=== PATIENT | female | born 1930 | race Caucasian/White ===

== ENCOUNTER 2017-03-22 02:56 | Inpatient (IN) ==
[2017-03-22] MEDS ORDERED: Acetaminophen 325 MG TABLET PO PRN (05:15)
[2017-03-22] MEDS ORDERED: Naloxone 0.4 MG/ML INJ IVP PRN (05:15)
[2017-03-22] MEDS ORDERED: Ondansetron 4 MG/2 ML VIAL IVP PRN (05:15)
[2017-03-22] MEDS ORDERED: 0.9 % Sodium Chloride 1,000 ML IVC SCH (06:15)
--- NOTE | 2017-03-22 06:16 | Internal Med History&Physical ---
Date of Encounter: 03/22/17 Time of Encounter: 06:15 Assessment and Plan (1) Hyperkalemia Current visit: Yes Status: Acute likely related to acute renal failure in the setting of ARB. Will give a dose of Kayexalate for now; continue to monitor BMP, Telemetry. Hold ARB for now. (2) Cellulitis Current visit: Yes Status: Acute B/L leg cellulitis, infection likely secondary to dry and flaky skin. Received a dose of Clindamycin in ER, given her age, will Start IV Cefazolin and monitor clinically. Lower extremity elevation; low suspicion for DVT; pain control with PRN Tylenol and Oxycodone; Qualifiers: Site of cellulitis: extremity Site of cellulitis of extremity: lower extremity Laterality: unspecified laterality Qualified Code(s): L03.119 - Cellulitis of unspecified part of limb (3) Acute renal failure Current visit: Yes Status: Acute likely acute, no known h/o- CKD per family, no previous labs available. Probably prerenal azotemia due to use of diuretics; patient appears intravascularly volume depleted; will start IV hydration and monitor serum creatinine closely; hold Losartan; dose medications per current creatinine clearance; Qualifiers: Acute renal failure type: unspecified Qualified Code(s): N17.9 - Acute kidney failure, unspecified (4) Elevated troponin Current visit: Yes Status: Acute could be ACS or related to dehydration and demand ischemia; patient is appropriately anticoagulated with INR 2.9. Continue Telemetry monitoring and cycle Troponins; will obtain 2D Echocardiogram and consult Cardiology for further recommendations; Code status d/w family; currently remains Full Code although she does not desire permanent vegetative state on life support; patient is also Confucianist and does not desire blood products transfusion; (5) CHF (congestive heart failure) Current visit: Yes Status: Acute possible acute on chronic CHF given her elevated BNP, leg swelling and dyspnea and hypoxia; received a dose of Bumex in the ER, however she appears volume depleted with hypotension, and will give gentle IV hydration at this time, pending Cardiology evaluation; monitor urine output; f/up Echocardiogram; hold beta-denis and ARB for now; Qualifiers: Congestive heart failure type: unspecified congestive heart failure type Congestive heart failure chronicity: acute on chronic Qualified Code(s): I50.9 - Heart failure, unspecified (6) Essential hypertension Current visit: Yes Status: Chronic hold antihypertensives for now; monitor BP closely; (7) CAD (coronary artery disease) Current visit: Yes Status: Chronic Qualifiers: Coronary Disease-Associated Artery/Lesion type: [place] artery [place] vs. transplanted heart: [place] heart Associated angina: without angina Qualified Code(s): I25.10 - Atherosclerotic heart disease of [place] coronary artery without angina pectoris (8) Hypothyroidism Current visit: Yes Status: Chronic TSH noted to be low, along with free T3; continue Levothyroxine; Qualifiers: Hypothyroidism type: unspecified Qualified Code(s): E03.9 - Hypothyroidism , unspecified (9) Atrial fibrillation Current visit: Yes Status: Chronic s/p PPM placement. Hold beta-denis for now, slight bradycardia. Hold Coumadin , INR 2.9; continue to monitor; Telemetry. Qualifiers: Atrial fibrillation type: chronic Qualified Code(s): I48.2 - Chronic atrial fibrillation Internal Medicine - H&P: HPI Chief complaint: Lethargy, malaise, weakness Admitted From: Emergency Dept Plans for Post Hospital Care: Home History of present illness: Ms. Medellin is a 86 year old female with h/o- CAD, PPM/ICD, CHF is brought in by family for worsening malaise, lethargy and generalized weakness. Patient is currently week and history is also obtained with the help of her son and daughter at bedside. Patient has been having intermittent swelling in both her legs and has been using Bumex as needed for the last few days. This has been associated with poor oral intake, generalized weakness and malaise, excessive sleep and lethargy. No nausea, vomiting, diarrhea but family does report subjective chills. No chest or abdominal pain. Reported orthopnea and mild shortness of breath. Past Med Surg Social Fam HX - Past Medical History Medical history: atrial fibrillation, CHF, DVT, hypertension, myocardial infarction, thyroid disease, other Psychiatric history: depression - Past Surgical History Surgical History: orthopedic, other (ankle repair surgery), pacemaker/AICD, AICD , pacemaker - Social History Smoking Status: Former smoker Smokeless Tobacco Status: No Alcohol use: none Drug use: none Occupational status: retired Current living situation: Home - Independent Activity Level: Uses cane/walker Recent Out of Country Travel Within the Last 8 Weeks: No Exposure or Possible Exposure to Illness During Travel: No - Family History Father Living Status: Age at : 72 Cause of : CHF complications. Hx Family Cardiac Disorders: Yes (CHF) Internal Medicine - H&P: Meds Bumetanide 11/27/16 [History] Digoxin 11/27/16 [History] Levothyroxine 11/27/16 [History] Losartan 11/27/16 [History] Metoprolol 11/27/16 [History] Aspirin Enteric Coated [Aspirin EC] 325 mg PO DAILY 03/22/17 [History] Allergies codeine Allergy (Verified 03/22/17 07:01) Hallucinating acetaminophen [From Tylenol] Adverse Reaction (Verified 03/22/17 07:01) See Comments unknown metoclopramide [From Reglan] Adverse Reaction (Verified 03/22/17 07:01) See Comments unknown midazolam [From Versed] Adverse Reaction (Verified 03/22/17 07:01) See Comments unknown nalbuphine [From Nubain] Adverse Reaction (Verified 03/22/17 07:01) See Comments unknown promethazine [From Phenergan] Adverse Reaction (Verified 03/22/17 07:01) See Comments unknown All Systems PM: A 10-system review of systems was performed and is negative for pertinent findings except as documented above in the HPI. - Constitutional Constitutional: anorexia, chills, fatigue, lethargy, malaise, weakness - EENT Eyes: no change in vision, no discharge, no pain, no photophobia Ears: no ear discharge, no ear pain, no tinnitus Nose, mouth and throat: no dysphagia, no nasal discharge, no neck pain, no sore throat - Cardiovascular Cardiovascular ROS IM: dyspnea - Respiratory Respiratory: no cough, no dyspnea, no wheezing, no excessive phlegm production - Gastrointestinal Gastrointestinal: no abdominal pain, no diarrhea, no hematemesis, no hematochezia, no melena, no nausea, no vomiting - Genitourinary Genitourinary: no change in urinary stream, no dysuria, no flank pain, no hematuria - Musculoskeletal Musculoskeletal ROS IM: no numbness, no tingling - Integumentary Integumentary IM: no rash, no unusual bruising - Neurological Neurological ROS: behavioral changes, no confusion, no convulsions, no focal weakness, no numbness, no tingling, no tremor(s) - Hematologic/Lymphatic Hematologic/Lymphatic: no easy bruising - Constitutional Vitals: Temp Pulse Resp BP Pulse Ox 94.1 F L 60 12 118/55 97 03/22/17 05:50 03/22/17 05:50 03/22/17 04:43 03/22/17 04:43 03/22/17 05:50 General appearance: Present: cachectic (very thin and frail), A&O X 2, mild distress - ENT ENT exam: Present: mucous membranes dry (appears dehydrated ) - Respiratory Respiratory exam: Present: CTAB. Absent: accessory muscle use, rales, rhonchi, wheezes - Cardiovascular Cardiovascular exam: Present: RRR, +S1, +S2. Absent: diastolic murmur, gallop, rubs, systolic murmur - GI/Abdominal GI/Abdominal exam: Present: normal bowel sounds, soft, no peritoneal signs. Absent: distended, tenderness - Extremities Exam Extremities exam: Present: pedal edema, warm, radial pulses palpable and symetrical. Absent: calf tenderness, cyanotic - Neurological Exam Neurological exam: Present: CN II-XII intact, no focal deficits. Absent: pronater drift, facial droop, speech deficit - Skin Skin exam: Present: dry, erythema (B/L legs with diffuse erythema, warmth and edema; very dry and flaky skin), intact Internal Med - H&P Results - Labs CBC & Chem 7: 03/22/17 05:55 - EKG Data -: EKG Interpreted by Myself EKG shows normal: sinus rhythm, QRS complexes (paced rhythm) Rate: bradycardia
[2017-03-22 06:25] LABS: Calcium 8.6 mg/dL (8.6-10.8); Potassium 5.7 mEq/L (3.5-4.5)
[2017-03-22 06:48] LABS: Triiodothyronine (T3) Free 1.56 pg/mL (1.71-3.71)
[2017-03-22 06:50] LABS: Digoxin 2.8 ng/mL (0.8-2.0)
[2017-03-22] MEDS ORDERED: ceFAZolin 1,000 MG in D5% in Water (Mini-Bag+) 100 ML IVPB SCH (08:00)
[2017-03-22] MEDS ORDERED: Furosemide 40 MG TABLET PO SCH (08:15)
[2017-03-22] MEDS ORDERED: Furosemide 20 MG/2 ML VIAL IVP SCH (09:00)
[2017-03-22] MEDS: Aspirin Enteric Coated 325 MG Tablet PO SCH (10:45)
[2017-03-22 12:52] LABS: Calcium 8.2 mg/dL (8.6-10.8); Potassium 5.7 mEq/L (3.5-4.5)
--- NOTE | 2017-03-22 17:04 | ECHO - Doppler Report ---
Echocardiogram Name: Camryn Medellin Date of Study: 03/22/2017 Date: 1930 Ht: 61.0 in Medical Record#: [id number] Age: 86 Wt: 97.0 lb Gender: Female BSA: 1.39 Order #: [id number] Location: [facility] Room #: 2N11 Reading Physician: Markus Ryan MD, [facility] Fund Raiser: Chano Herbert Ordering Physician: Emmy Vickers MD Primary Physician: Indications: Elevated Troponin, Hypoxia Impressions: Technically sub-optimal due to poor echocardiographic windows. Grossly normal LV systolic function, estimated LVEF 60%. Several myocardial segments were not well visualized due to poor echo windows. Severely dilated right ventricle. Mild-moderate RV hypokinesis. There is flattening of the IV septum consistent with RV pressure/volume overload. A device lead was visualized in the right atrium and right ventricle. Severely dilated right atrium. Trileaflet aortic valve with moderately calcified leaflets with reduced systolic excursion. Aortic valve function was not well assessed on this study. Visually, I suspect moderate aortic stenosis. Mild aortic regurgitation. There is restricted motion of the tricuspid valve leaflets. The tricuspid valve leaflets fail to coapt. Severe (wide-open) tricuspid regurgitation. Cannot assess RVSP on this study. Findings: Study Quality * Technically sub-optimal due to poor echocardiographic windows. ECG Findings * Paced rhythm. Left Ventricle * Grossly normal LV systolic function, estimated LVEF 60%. Several myocardial segments were not well visualized due to poor echo windows. * Normal LV chamber size and wall thickness. * Indeterminate diastolic function. Right Ventricle * Severely dilated right ventricle. Mild-moderate RV hypokinesis. * There is flattening of the IV septum consistent with RV pressure/volume overload. Device lead * A device lead was visualized in the right atrium and right ventricle. Left Atrium * Normal left atrial size. Right Atrium * Severely dilated right atrium. Aorta * Normally sized aortic root. Pericardium * There is no pericardial effusion present. IVC * The IVC is not well evaluated. Pleural Effusion * A pleural effusion is noted. Aortic Valve * Trileaflet aortic valve with moderately calcified leaflets with reduced systolic excursion. * Aortic valve function was not well assessed on this study. Visually, I suspect moderate aortic stenosis. * Mild aortic regurgitation. Mitral Valve * Mildly thickened mitral valve leaflets. * No mitral stenosis. * Trace mitral regurgitation. Tricuspid Valve * There is restricted motion of the tricuspid valve leaflets. The tricuspid valve leaflets fail to coapt. * No tricuspid stenosis. * Severe (wide-open) tricuspid regurgitation. * Cannot assess RVSP on this study. Pulmonic Valve * Pulmonic valve not well visualized. * No pulmonic stenosis. * Trace pulmonic regurgitation. History History of CAD/PTCA Congestive Heart Failure Pacer/ICD Implant Measurements: BP: 88/ 39 2D Normal Values RVIDd: 5.20 cm IVSd: 1.00 cm 0.6 - 1.0 cm LVIDd: 3.90 cm 3.7 - 5.6 cm LVPWd: .80 cm 0.6 - 1.1 cm LVIDs: 2.90 cm 1.5 - 3.6 cm AO: 2.60 cm < 4.0 cm %FS: 25.60 cm >25 % LA volume: 32 Updated by Markus Ryan MD, FACC on 03/22/2017 4:58:13 PM electronically signed on 03/22/2017 5:00:01 PM with status of Final
--- NOTE | 2017-03-22 17:07 | Arterial Study Report ---
LE Arterial Physiologic Study Patient Name:Camryn Medellin Order Number:[id number] Procedure Date:03/22/2017 Date:1930ge:86 yrs Gender:Female Lt BP:83 / mmHg Rt.BP:84 / mmHgHeart Rate: Location:[facility] Room #: 2N11 Manager Outreach:Chano Herbert Referring MD:Moira Guido MD Reading MD:Dilip Phoenix MD Primary Indications:Diknished pedal pulses Risk Factors Yes/No Smoker Previous Yes Impressions: The right JOSE LUIS and waveforms are consistent with mild disease. Right JOSE LUIS 0.8. The left JOSE LUIS and waveforms are consistent with mild disease. Left JOSE LUIS 1.06. Recommendations: Risk factor reduction. Follow-up exam in 1 year. After imaging the patient returned to their room. Findings LE Arterial Physiologic Exam: PVR: Right: The PVR waveforms are mildly diminished in the right ankle. Left: The PVR waveforms are mildly diminished in the left ankle. Prior Study: No prior study available for comparison. Segmental Pressures Side Location Pressure Index Result Right Posterior Tibial 67 0.80 Right Dorsalis Pedis 66 0.79 Left Posterior Tibial 254 3.02 noncompressible Left Dorsalis Pedis 89 1.06 Ankle Brachial Index Right Systolic Diastolic JOSE LUIS Brachial 84 0.80 Dorsalis Pedis 66 0.79 Posterior Tibial 67 0.80 Left Systolic Diastolic JOSE LUIS Brachial 83 3.02 Dorsalis Pedis 89 1.06 Posterior Tibial 254 3.02 Updated by Dilip Phoenix MD on 03/22/2017 5:03:22 PM with Status of Final electronically signed on 03/22/2017 5:03:55 PM with status of Final
--- NOTE | 2017-03-22 18:01 | Cardiology Consult Note ---
Date of Encounter: 03/22/17 Time of Encounter: 17:58 Assessment and Plan (1) Cardiac enzymes elevated Current Visit: No Status: Acute Mildly elevated troponin in setting of dehydration/JORDAN. Advanced age with baseline dementia. I had a long discussion with patient's family earlier today. Given her current condition, dementia, and somewhat poor appearing quality of life, I would not recommend an aggressive cardiac strategy. Recommend supportive care. Hopefully, she will respond favorably. However, family seems open to the idea of hospice if her condition worsens. No further inpatient cardiac testing recommended at this time. (2) VHD (valvular heart disease) Current Visit: Yes Status: Acute Severe TR with evidence of RV failure on TTE. ? related to multiple device leads. Also, moderate visually. Recommend conservative strategy of observation and medical therapy as appropriate. (3) CAD (coronary artery disease) Current Visit: Yes Status: Chronic [place] CAD, prior PCI. Recommend aspirin therapy. No BB given relative hypotension. See comments under elevated cardiac enzymes. Please call with questions or concerns. Qualifiers: Coronary Disease-Associated Artery/Lesion type: [place] artery [place] vs. transplanted heart: [place] heart Associated angina: without angina Qualified Code(s): I25.10 - Atherosclerotic heart disease of [place] coronary artery without angina pectoris Discussion w patient/family: The assessment and plan as outlined above was discussed with the patient and/or family members who expressed understanding and agreement. All questions were answered. Thank you for involving us in the care of your patient. Please call with any questions. History of Present Illness Consult date: 03/22/17 Requesting physician: Elsie Vickers Consult reason: Elevated troponin Chief complaint: Confusion, Decreased PO intake History of present illness: Ms. Medellin is a 86 year old female who currently lives in apartment, but is visited by family. Family reports increasing weakness and poor po intake for quite some time. Patient does not eat or drink unless someone is there to sit with her. Admitted for increasing weakness and confusion. Noted to be very thin, temporal wasting. Elevated creatinine. Reports history of CAD, prior PCI, prior PM upgraded to ICD about 10 years ago. Prior curer acid drum Dr. Burch. Past Med Surg Social Fam HX - Past Medical History Medical history: atrial fibrillation, CHF, DVT, hypertension, myocardial infarction, thyroid disease, other Psychiatric history: depression - Past Surgical History Surgical History: orthopedic, other (ankle repair surgery), pacemaker/AICD, AICD , pacemaker - Social History Smoking Status: Former smoker Smokeless Tobacco Status: No Alcohol use: none Drug use: none - Family History Father Living Status: Age at : 72 Cause of : CHF complications. Hx Family Cardiac Disorders: Yes (CHF) Medications and Allergies Aspirin Enteric Coated [Aspirin EC] 325 mg PO DAILY 03/22/17 [History] Bumetanide [Bumetanide] 0.5 mg PO DAILY 03/22/17 [History] Digoxin [Lanoxin] 0.125 mg PO DAILY 03/22/17 [History] Levothyroxine Sodium [Levoxyl] 112 mcg PO DAILY 03/22/17 [History] Losartan Potassium [Cozaar] 100 mg PO DAILY 03/22/17 [History] Metoprolol [Lopressor] 50 mg PO DAILY 03/22/17 [History] Allergies codeine Allergy (Verified 03/22/17 07:01) Hallucinating acetaminophen [From Tylenol] Adverse Reaction (Verified 03/22/17 07:01) See Comments unknown metoclopramide [From Reglan] Adverse Reaction (Verified 03/22/17 07:01) See Comments unknown midazolam [From Versed] Adverse Reaction (Verified 03/22/17 07:01) See Comments unknown nalbuphine [From Nubain] Adverse Reaction (Verified 03/22/17 07:01) See Comments unknown promethazine [From Phenergan] Adverse Reaction (Verified 03/22/17 07:01) See Comments unknown ROS unobtainable: due to mental status All Systems Review: A 10-system review of systems was performed and is negative for pertinent findings except as documented above in the HPI. Physical Examination Vital Signs, Last 4 Hours Temp Pulse Resp BP Pulse Ox 03/22/17 16:05 97.3 F L 60 16 98/44 97 03/22/17 15:15 97.3 F L 61 16 84/38 97 General: Other (Frail, sleeping. ) HEENT: Other (Dry mucous membranes. ) Neck: No JVD, Normal carotid pulses Cardiac: Other (Distant, mild ash) Lungs: Other (Shallow, diminished) Neuro: Other (Weak, tired. ) Abdomen: Soft, Non-Tender Skin: No rashes noted on visualized skin Musculoskeletal: No Chest Wall Tenderness Extremities: Other (Edema bilterally) Results 03/22/17 12:15 Lab Results 03/22/17 03/22/17 03/22/17 05:55 05:55 09:23 Sodium 134 L Potassium 5.7 H 5.6 H Chloride 98 Carbon Dioxide 29 BUN 78 H Creatinine 1.87 H Glucose 81 Calcium 8.6 Troponin I 0.38 H* 03/22/17 03/22/17 12:15 12:15 Sodium 134 L Potassium 5.7 H Chloride 99 Carbon Dioxide 27 BUN 78 H Creatinine 1.89 H Glucose 69 L Calcium 8.2 L Troponin I 0.36 H* - Imaging and Cardiology Echo: report reviewed - EKG Interpretation EKG results cardiology: personally reviewed Consult Discharge Plan - Plan Referrals: Jasmeet Olivares CNP [Advanced Practice Nurse] - 03/29/17 2:00 pm Peter Kunz MD [Primary Care Provider] - Caity Demarco MD [Partnered Physician] - 04/12/17 2:30 pm
[2017-03-22] MEDS: ceFAZolin 1,000 MG in D5% in Water (Mini-Bag+) 100 ML IVPB SCH (21:21)
[2017-03-23 05:33] LABS: INR 2.9; Prothrombin Time 31.9 Seconds (9.4-12.1)
[2017-03-23 05:46] LABS: Basophils % 0.7 %; Eosinophils # 0.1 K/mcL (0.0-0.6); Eosinophils % 2.4 %; Hematocrit 39.5 % (35.3-44.9); Hemoglobin 12.7 g/dL (11.5-15.4); Immature Granulocytes % 0.2 % (0-4); Lymphocytes # 1.1 K/mcL (0.6-4.6); Mean Corpuscular HGB Conc 32.2 g/dL (31.6-35.5); Mean Corpuscular Hemoglobin 30.9 pg (28.0-33.3); Mean Corpuscular Volume 96.1 fL (83.0-100.0); Mean Platelet Volume 10.8 fL (9.4-12.4); Monocytes # 0.6 K/mcL (0.0-1.3); Monocytes % 13.3 %; Neutrophils # 2.3 K/mcL (1.6-8.9); Platelet Count 154 K/mcL (140-400); Red Blood Count 4.11 M/mcL (3.82-4.97); Red Cell Distribution Width 15.4 % (11.5-14.5); Segmented Neutrophils % 56.4 %
[2017-03-23 06:22] LABS: Calcium 8.4 mg/dL (8.6-10.8); Chol/HDL Ratio 3.6 (0-4.9); Magnesium 2.2 mg/dL (1.6-2.6); Phosphorous 6.2 mg/dL (2.3-4.7); Potassium 5.8 mEq/L (3.5-4.5)
[2017-03-23] MEDS: ceFAZolin 1,000 MG in D5% in Water (Mini-Bag+) 100 ML IVPB SCH ×2 (08:23→20:55)
[2017-03-23] MEDS: Aspirin Enteric Coated 325 MG Tablet PO SCH (12:37)
[2017-03-23] MEDS ORDERED: Saline Nasal Spray 44 ML BOTTLE NS PRN (19:55)
[2017-03-23] MEDS ORDERED: D5% in 0.45% NACL 1,000 ML IVC SCH (22:15)
[2017-03-24 05:09] LABS: Basophils % 0.9 %; Eosinophils # 0.1 K/mcL (0.0-0.6); Eosinophils % 2.1 %; Hematocrit 41.4 % (35.3-44.9); Hemoglobin 13.1 g/dL (11.5-15.4); Immature Granulocytes % 0.2 % (0-4); Lymphocytes # 1.2 K/mcL (0.6-4.6); Mean Corpuscular HGB Conc 31.6 g/dL (31.6-35.5); Mean Corpuscular Hemoglobin 30.3 pg (28.0-33.3); Mean Corpuscular Volume 95.8 fL (83.0-100.0); Mean Platelet Volume 10.5 fL (9.4-12.4); Monocytes # 0.6 K/mcL (0.0-1.3); Monocytes % 13.3 %; Neutrophils # 2.4 K/mcL (1.6-8.9); Platelet Count 167 K/mcL (140-400); Red Blood Count 4.32 M/mcL (3.82-4.97); Red Cell Distribution Width 15.2 % (11.5-14.5); Segmented Neutrophils % 55.5 %
[2017-03-24 05:17] LABS: INR 3.3; Prothrombin Time 36.4 Seconds (9.4-12.1)
[2017-03-24 05:35] LABS: Calcium 8.6 mg/dL (8.6-10.8); Magnesium 2.3 mg/dL (1.6-2.6); Potassium 5.7 mEq/L (3.5-4.5)
[2017-03-24] MEDS: Aspirin Enteric Coated 325 MG Tablet PO SCH (08:02)
[2017-03-24] MEDS: ceFAZolin 1,000 MG in D5% in Water (Mini-Bag+) 100 ML IVPB SCH (08:02)
[2017-03-24] MEDS ORDERED: Bisacodyl 10 MG RECTAL SUPPOSITORY RC ONE (09:00)
[2017-03-24] MEDS ORDERED: Furosemide 20 MG/2 ML VIAL IVP SCH (09:00)
--- NOTE | 2017-03-24 09:47 | Internal Med Progress Note ---
Date of Encounter: 03/23/17 Time of Encounter: 10:00 - Assessment and plan (1) Acute metabolic encephalopathy Current Visit: Yes Status: Acute Assessment and plan: secondary to infection, hyperkalemia, heart failure, hypoxemia, elevated digoxin level. CT head showed no acute intracranial process. There are areas of encephalomalacia in right frontal, left. The lobe and left cerebellum that are unchanged. slowly improving. treat underlying etiology. (2) Heart failure Current Visit: No Status: Acute Assessment and plan: acute on chronic right-sided heart failure and diastolic HF. Chest x-ray reviewed by me and shows pulmonary vascular congestion. Echocardiogram shows LVEF 60%,, severely dilated right ventricle, mild-moderate RV hyokinesis, there is flattening, of the IV septum consistent with RV pressure /volume overload, severe dilated right atrium, severe TR. Appreciate cardiology input. Stop IV fluids. will resume Lasix tomorrow. Fluid restriction. Strict I/O. Qualifiers: Heart failure type: diastolic Heart failure chronicity: acute on chronic Qualified Code(s): I50.33 - Acute on chronic diastolic (congestive) heart failure (3) VHD (valvular heart disease) Current Visit: Yes Status: Chronic Assessment and plan: severe TR. plan as above. (4) Elevated digoxin level Current Visit: Yes Status: Acute Assessment and plan: digoxin levek at 2.8 on admission. holding digoxin. (5) CKD (chronic kidney disease) stage 4, GFR 15-29 ml/min Current Visit: Yes Status: Acute Assessment and plan: acute on chronic CKD 4 with hyperkalemia. recieved kayexalate with no improvement. (6) Hyperkalemia Current Visit: Yes Status: Acute (7) Elevated troponin Current Visit: Yes Status: Acute Assessment and plan: secondary to demand ischemia. (8) Atrial fibrillation Current Visit: Yes Status: Chronic Assessment and plan: holding home dose metoprolol due to bradycardia/hypotension. Qualifiers: Atrial fibrillation type: chronic Qualified Code(s): I48.2 - Chronic atrial fibrillation (9) CAD (coronary artery disease) Current Visit: Yes Status: Chronic Assessment and plan: continue medical therapy with aspiring. Qualifiers: Coronary Disease-Associated Artery/Lesion type: [place] artery [place] vs. transplanted heart: [place] heart Associated angina: without angina Qualified Code(s): I25.10 - Atherosclerotic heart disease of [place] coronary artery without angina pectoris (10) Essential hypertension Current Visit: Yes Status: Chronic Assessment and plan: hypotensive on admission. holding home dose of losartan. (11) Hypothyroidism Current Visit: Yes Status: Chronic Qualifiers: Hypothyroidism type: unspecified Qualified Code(s): E03.9 - Hypothyroidism , unspecified - Subjective Interval history: patient is more alert, she is sitting in chair and eating her breakfast. - Constitutional Vitals: Temp Pulse Resp BP Pulse Ox 96.6 F L 60 16 97/40 95 03/24/17 07:39 03/24/17 08:00 03/24/17 07:39 03/24/17 07:39 03/24/17 07:39 General appearance: Present: cachectic (very thin and frail), cooperative, A&O X 2, pleasant, no acute distress Exam: she answers some questions. she is very hard of hearing. - Neck Neck exam general surgery: Present: supple, trachea midline. Absent: lymphadenopathy - Respiratory Respiratory exam: Present: decreased breath sounds, rhonchi (at right lung base) - Cardiovascular Cardiovascular exam: Present: distant heart sounds - GI/Abdominal GI/Abdominal exam: Present: normal bowel sounds, soft. Absent: distended, tenderness - Back Exam Back exam: Absent: CVA tenderness (L), CVA tenderness (R) - Neurological Exam Neurological exam: Present: alert. Absent: facial droop, speech deficit - Skin Skin exam: Present: rash (LE redness and swelling.) Additional comments: decubitus sacral ulcer stage II, present since admission. Internal Medicine: Result - Labs CBC & Chem 7: 03/24/17 04:19 03/24/17 04:19 Labs: Short CBC 03/24/17 Range/Units 04:19 WBC 4.4 (4.3-11.1) K/mcL Hgb 13.1 (11.5-15.4) g/dL Hct 41.4 (35.3-44.9) % Plt Count 167 (140-400) K/mcL Neutrophils # 2.4 (1.6-8.9) K/mcL BMP 03/24/17 04:19 Sodium 132 L Potassium 5.7 H Chloride 98 Carbon Dioxide 24 BUN 84 H Creatinine 2.31 H Glucose 85 Calcium 8.6 - ABG Interpretation ABG results: PT/INR, D-dimer PT 36.4 Seconds (9.4-12.1) H 03/24/17 04:19 Consult Discharge Plan - Plan Referrals: Jasmeet Olivares CNP [Advanced Practice Nurse] - 03/29/17 2:00 pm Peter Kunz MD [Primary Care Provider] - Caity Demarco MD [Partnered Physician] - 04/12/17 2:30 pm
[2017-03-24] MEDS ORDERED: Morphine Oral CONC 5 MG/0.25 ML ORAL.SYG PO PRN (10:40)
--- NOTE | 2017-03-24 10:43 | Internal Med Progress Note ---
Date of Encounter: 03/24/17 Time of Encounter: 10:00 - Assessment and plan (1) Goals of care, counseling/discussion Current Visit: Yes Status: Acute Assessment and plan: Palliative service consulted. patient is [id number]. They would like to discuss switching off the AICD only but not the pacemaker. (2) Acute metabolic encephalopathy Current Visit: Yes Status: Acute Assessment and plan: secondary to infection, hyperkalemia, heart failure, hypoxemia, elevated digoxin level. CT head showed no acute intracranial process. There are areas of encephalomalacia in right frontal, left. The lobe and left cerebellum that are unchanged. improved. treat underlying etiology. (3) Acute respiratory failure with hypoxia Current Visit: Yes Status: Acute Assessment and plan: secondary to acute heat failure. patient requiring 3L NC. plan as heart failure. (4) Heart failure Current Visit: No Status: Acute Assessment and plan: acute on chronic right-sided heart failure and diastolic HF. Chest x-ray reviewed by me and shows pulmonary vascular congestion. Echocardiogram shows LVEF 60%,, severely dilated right ventricle, mild-moderate RV hyokinesis, there is flattening, of the IV septum consistent with RV pressure /volume overload, severe dilated right atrium, severe TR. Appreciate cardiology input. resume Lasix. oxygen supplementation. Fluid restriction. Strict I/O. Qualifiers: Heart failure type: diastolic Heart failure chronicity: acute on chronic Qualified Code(s): I50.33 - Acute on chronic diastolic (congestive) heart failure (5) VHD (valvular heart disease) Current Visit: Yes Status: Chronic Assessment and plan: severe TR. plan as above. (6) Elevated digoxin level Current Visit: Yes Status: Acute Assessment and plan: digoxin levek at 2.8 on admission. holding digoxin. (7) CKD (chronic kidney disease) stage 4, GFR 15-29 ml/min Current Visit: Yes Status: Acute Assessment and plan: acute on chronic CKD 4 with hyperkalemia. recieved kayexalate with no improvement. (8) Hyperkalemia Current Visit: Yes Status: Acute Assessment and plan: rectal kayexalatex1. dulcolax RC x1. (9) Elevated troponin Current Visit: Yes Status: Acute Assessment and plan: secondary to demand ischemia. (10) Atrial fibrillation Current Visit: Yes Status: Chronic Assessment and plan: holding home dose metoprolol due to bradycardia/hypotension. Qualifiers: Atrial fibrillation type: chronic Qualified Code(s): I48.2 - Chronic atrial fibrillation (11) CAD (coronary artery disease) Current Visit: Yes Status: Chronic Assessment and plan: continue medical therapy with aspiring. Qualifiers: Coronary Disease-Associated Artery/Lesion type: [place] artery [place] vs. transplanted heart: [place] heart Associated angina: without angina Qualified Code(s): I25.10 - Atherosclerotic heart disease of [place] coronary artery without angina pectoris (12) Essential hypertension Current Visit: Yes Status: Chronic Assessment and plan: hypotensive on admission. holding home dose of losartan. (13) Hypothyroidism Current Visit: Yes Status: Chronic Assessment and plan: resume home med Qualifiers: Hypothyroidism type: unspecified Qualified Code(s): E03.9 - Hypothyroidism , unspecified - Subjective Interval history: patient is sleeping. daughter at bedside, would like patient to have sitter at nighttime. - Constitutional Vitals: Temp Pulse Resp BP Pulse Ox 96.6 F L 60 16 97/40 95 03/24/17 07:39 03/24/17 08:00 03/24/17 07:39 03/24/17 07:39 03/24/17 07:39 General appearance: Present: cachectic (very thin and frail), cooperative, A&O X 2, pleasant, no acute distress - Respiratory Respiratory exam: Present: rhonchi, wheezes - Cardiovascular Cardiovascular exam: Present: RRR - GI/Abdominal GI/Abdominal exam: Present: normal bowel sounds, soft. Absent: distended, tenderness - Extremities Exam Extremities exam: Present: pedal edema (1+ le edema) - Back Exam Back exam: Absent: CVA tenderness (L), CVA tenderness (R) - Neurological Exam Additional comments: sleeping but open eyes and answers yes and no questions. she moves her arms and legs briefly. - Skin Skin exam: Present: rash (LE ) Internal Medicine: Result - Labs CBC & Chem 7: 03/24/17 04:19 03/24/17 04:19 Labs: Short CBC 03/24/17 Range/Units 04:19 WBC 4.4 (4.3-11.1) K/mcL Hgb 13.1 (11.5-15.4) g/dL Hct 41.4 (35.3-44.9) % Plt Count 167 (140-400) K/mcL Neutrophils # 2.4 (1.6-8.9) K/mcL BMP 03/24/17 04:19 Sodium 132 L Potassium 5.7 H Chloride 98 Carbon Dioxide 24 BUN 84 H Creatinine 2.31 H Glucose 85 Calcium 8.6 - ABG Interpretation ABG results: PT/INR, D-dimer PT 36.4 Seconds (9.4-12.1) H 03/24/17 04:19 Consult Discharge Plan - Plan Referrals: Jasmeet Olivares CNP [Advanced Practice Nurse] - 03/29/17 2:00 pm Peter Kunz MD [Primary Care Provider] - Caity Demarco MD [Partnered Physician] - 04/12/17 2:30 pm
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
[2017-03-24] MEDS: Furosemide 20 MG/2 ML VIAL IVP SCH (16:29)
[2017-03-24] MEDS: cephALEXin 250 MG CAPSULE PO SCH (22:20)
[2017-03-25] MEDS: *HR* LORazepam Oral Conc 2 MG/ML SL PRN ×2 (02:14→06:22)
--- NOTE | 2017-03-25 07:34 | Discharge Summary ---
Date of Encounter: 03/25/17 Time of Encounter: 07:32 - Discharge Diagnosis (1) Goals of care, counseling/discussion Priority: Primary Status: Acute (2) Acute metabolic encephalopathy Priority: Primary Status: Acute (3) Acute respiratory failure with hypoxia Priority: Primary Status: Acute (4) Heart failure Priority: Primary Status: Acute Qualifiers: Heart failure type: diastolic Heart failure chronicity: acute on chronic Qualified Code(s): I50.33 - Acute on chronic diastolic (congestive) heart failure (5) VHD (valvular heart disease) Priority: Primary Status: Chronic (6) Elevated digoxin level Priority: Primary Status: Acute (7) CKD (chronic kidney disease) stage 4, GFR 15-29 ml/min Priority: Secondary Status: Chronic (8) Hyperkalemia Priority: Primary Status: Acute (9) Elevated troponin Priority: Primary Status: Acute (10) Atrial fibrillation Priority: Secondary Status: Chronic Qualifiers: Atrial fibrillation type: chronic Qualified Code(s): I48.2 - Chronic atrial fibrillation (11) CAD (coronary artery disease) Priority: Secondary Status: Chronic Qualifiers: Coronary Disease-Associated Artery/Lesion type: [place] artery [place] vs. transplanted heart: [place] heart Associated angina: without angina Qualified Code(s): I25.10 - Atherosclerotic heart disease of [place] coronary artery without angina pectoris (12) Essential hypertension Priority: Secondary Status: Chronic (13) Hypothyroidism Priority: Secondary Status: Chronic Qualifiers: Hypothyroidism type: unspecified Qualified Code(s): E03.9 - Hypothyroidism , unspecified - Discharge Medications Prescriptions: Haloperidol Oral Conc [Haldol] 1 mg PO Q6H PRN #10 mls PRN Reason: agitation LORazepam Oral Conc [Ativan Oral Conc] 0.5 mg SL Q4H PRN #15 mls PRN Reason: anxiety or agitation Morphine Oral CONC [Roxanol] 2.5 - 5 mg PO Q2H PRN #30 ml PRN Reason: pain or dyspnea Home Medications: Bumetanide 0.5 mg PO DAILY 03/22/17 [History] Levothyroxine Sodium [Levoxyl] 112 mcg PO DAILY 03/22/17 [History] Haloperidol Oral Conc [Haldol] 1 mg PO Q6H PRN #10 mls 03/24/17 [Rx] LORazepam Oral Conc [Ativan Oral Conc] 0.5 mg SL Q4H PRN #15 mls 03/24/17 [Rx] Morphine Oral CONC [Roxanol] 2.5 - 5 mg PO Q2H PRN #30 ml 03/24/17 [Rx] cephALEXin [Keflex] 250 mg PO BID 7 Days 03/25/17 [Rx] Allergies/Adverse Reactions: Allergies codeine Allergy (Verified 03/22/17 07:01) Hallucinating acetaminophen [From Tylenol] Adverse Reaction (Verified 03/22/17 07:01) See Comments unknown metoclopramide [From Reglan] Adverse Reaction (Verified 03/22/17 07:01) See Comments unknown midazolam [From Versed] Adverse Reaction (Verified 03/22/17 07:01) See Comments unknown nalbuphine [From Nubain] Adverse Reaction (Verified 03/22/17 07:01) See Comments unknown promethazine [From Phenergan] Adverse Reaction (Verified 03/22/17 07:01) See Comments unknown Procedures/tests Complete & Pending: Procedures Performed prior 72 hours Category Date Time Status JOSE LUIS [EV ankle brachial index] Routine Y 03/22/17 09:09 Completed Date of admission: 03/22/17 05:15 Primary care physician: Peter Kunz MD Consults: 03/22/17 05:19 Consult to Occupational Therapy [CONS] Routine Comment: Evaluate, develop and implement POC Reason for Consult: Deconditioning, weakness Consult to Physical Therapy [CONS] Routine Comment: Evaluate, develop and implement POC Reason for Consult: Deconditioning, weakness 03/22/17 06:12 Consult to Nutrition [CONS] Routine Comment: Consulting Provider: NUTRITION Reason for Dietary Consult: MST Score Consult to [employer] [CONS] Routine Reason for SW Consult: Family wanting to discuss POA 03/22/17 06:15 Consult to Cardiology [CONS] Routine Comment: Consulting Provider: Cardiology D Lo Reason for Consult: Elevated Troponin, lethargy, malaise Call Completed: Yes 03/23/17 16:12 Consult to Palliative Care [CONS] Routine Comment: Consulting Provider: Palliative Care Megan Reason for Consult: goals of care. Call Completed: Yes - Patient Status Disposition: Transfer Inpatient Rehab Fac Condition: Fair Functional capacity at discharge: bed bound (okay to sit in chair) Overall status at discharge: patient is not back to baseline - Discharge Instructions Follow Up With: Jasmeet Olivares, INDUSTRIAL ORDER CLERK [Advanced Practice Nurse] - (Pt is going to an ECF, no PCP appointment needed) Peter Kunz MD [Primary Care Provider] - Caity Demarco MD [Partnered Physician] - 04/12/17 2:30 pm - Diet and Activity Activity: other (okay to sit in chair) Diet: low fat, low cholesterol (fluid restriction 1.6 liters a day) Interval History: Her son is at bedside and states that patient was able to fall asleep at 3 AM after she received Ativan and morphine. Patient is sleeping comfortable. Hospital course: Ms. Medellin is a 86 year old female with past medical history of CAD, right-sided heart failure, severe TR, status post PPM/ICD, CKD 4, atrial fibrillation on Coumadin and hypertension who presented with a chief complaint of changes in mental status and generalized weakness. CT had shown no acute intracranial process. She was admitted with diagnosis of lower treatment is likely some acute on chronic right-sided heart failure. She received IV 7 is only in with his low improvement of her cellulitis. Chest x-ray reviewed by me and shows pulmonary vascular congestion. Echocardiogram shows LVEF 60%,, severely dilated right ventricle, mild-moderate RV hyokinesis, there is flattening, of the IV septum consistent with RV pressure /volume overload, severe dilated right atrium, severe TR. Given severity of her comorbidities, our palliative service was consulted. After family meeting, patient and family agreed on hospice at halfway. - Time Spent with Patient Total time spent providing and/or coordinating discharge services: - Constitutional Vitals: Temp Pulse Resp BP Pulse Ox 97.5 F L 60 16 102/42 90 03/24/17 19:44 03/24/17 21:15 03/24/17 19:44 03/24/17 15:31 03/24/17 19:44 General appearance: Present: cachectic (very thin and frail), cooperative, A&O X 2, pleasant, no acute distress
--- NOTE | 2017-03-25 07:37 | Physician Discharge Referral ---
ExtendedCare Referral Info Transfer To: ECF - hospice Provider in Charge: trent Provider in Charge after Transfer: [facility] Institutional Level of Care: Skilled - Diagnosis (1) Goals of care, counseling/discussion Status: Acute (2) Acute metabolic encephalopathy Status: Acute (3) Acute respiratory failure with hypoxia Status: Acute (4) Heart failure Status: Acute (5) VHD (valvular heart disease) Status: Chronic (6) Elevated digoxin level Status: Acute (7) CKD (chronic kidney disease) stage 4, GFR 15-29 ml/min Status: Chronic (8) Hyperkalemia Status: Acute (9) Elevated troponin Status: Acute (10) Atrial fibrillation Status: Chronic (11) CAD (coronary artery disease) Status: Chronic (12) Essential hypertension Status: Chronic (13) Hypothyroidism Status: Chronic - Transfer Medications Prescriptions: Haloperidol Oral Conc [Haldol] 1 mg PO Q6H PRN #10 mls PRN Reason: agitation LORazepam Oral Conc [Ativan Oral Conc] 0.5 mg SL Q4H PRN #15 mls PRN Reason: anxiety or agitation Morphine Oral CONC [Roxanol] 2.5 - 5 mg PO Q2H PRN #30 ml PRN Reason: pain or dyspnea Home Medications: Bumetanide 0.5 mg PO DAILY 03/22/17 [History] Levothyroxine Sodium [Levoxyl] 112 mcg PO DAILY 03/22/17 [History] Haloperidol Oral Conc [Haldol] 1 mg PO Q6H PRN #10 mls 03/24/17 [Rx] LORazepam Oral Conc [Ativan Oral Conc] 0.5 mg SL Q4H PRN #15 mls 03/24/17 [Rx] Morphine Oral CONC [Roxanol] 2.5 - 5 mg PO Q2H PRN #30 ml 03/24/17 [Rx] cephALEXin [Keflex] 250 mg PO BID 7 Days 03/25/17 [Rx] Allergies/Adverse Reactions: Allergies codeine Allergy (Verified 03/22/17 07:01) Hallucinating acetaminophen [From Tylenol] Adverse Reaction (Verified 03/22/17 07:01) See Comments unknown metoclopramide [From Reglan] Adverse Reaction (Verified 03/22/17 07:01) See Comments unknown midazolam [From Versed] Adverse Reaction (Verified 03/22/17 07:01) See Comments unknown nalbuphine [From Nubain] Adverse Reaction (Verified 03/22/17 07:01) See Comments unknown promethazine [From Phenergan] Adverse Reaction (Verified 03/22/17 07:01) See Comments unknown - Respiratory Orders Oxygen / L per min (4) Smoking Cessation: Smoking cessation has been advised. For more information, call the [place] Tobacco Quit Line at 3-320-JMHU-NOW. - Advance Directives Code Status: DNR-Comfort Care - Mobility Orders Chair, Bedrest - Rehabiliation Orders Rehab Potential: Poor - Diet Orders Cardiac (fluid restriction 1.6 liters per day) CERTIFICATION: I certify that the transfer of the above named patient to an Extended Care Facility is necessary for the continuing treatment of the diagnosis listed. The above information is true and accurate reflection of patient's current condition. Confidential - Redisclosure prohibited without a patient's written consent.
[2017-03-25 08:29] VITALS: BP 100/45
[2017-03-25] MEDS: Furosemide 20 MG/2 ML VIAL IVP SCH (08:35)
--- NOTE | 2017-03-25 10:13 | Palliative Progress Note ---
Date of Encounter: 03/25/17 Time of Encounter: 09:45 - Assessment and plan (1) Dyspnea Current Visit: Yes Status: Acute Assessment and plan: Tolerated Roxanol well, was utilized x1 last night. Continue and monitor Qualifiers: Dyspnea type: unspecified Qualified Code(s): R06.00 - Dyspnea, unspecified (2) Anxiety Current Visit: Yes Status: Acute Assessment and plan: Tolerated Lorazepam well last night. Son states first night she has slept well in about a week. Continue and monitor (3) Goals of care, counseling/discussion Current Visit: Yes Status: Acute Assessment and plan: Will transfer to [place] with [facility] hospice today. (4) Heart failure Current Visit: No Status: Acute Qualifiers: Heart failure type: diastolic Heart failure chronicity: acute on chronic Qualified Code(s): I50.33 - Acute on chronic diastolic (congestive) heart failure (5) Severe tricuspid regurgitation Current Visit: Yes Status: Acute - Time Spent With Patient Total time spent is greater than 50% in coordination of care (as documented) at patient's floor/unit and/or counseling patient: - Subjective Interval history: Patient sleeping quietly. Family at bedside. Stated she slept much better last night with Lorazepam. AICD was inactivated yesterday. Preparing for transfer to discharge. - Constitutional Vitals: Abnormal lab results RDW 15.2 % (11.5-14.5) H 03/24/17 04:19 PT 36.4 Seconds (9.4-12.1) H 03/24/17 04:19 Sodium 132 mEq/L (136-145) L 03/24/17 04:19 Potassium 5.7 mEq/L (3.5-4.5) H 03/24/17 04:19 BUN 84 mg/dL (7-20) H 03/24/17 04:19 Creatinine 2.31 mg/dL (0.57-1.11) H 03/24/17 04:19 Est GFR ( Amer) 24 (> 60) L 03/24/17 04:19 Est GFR (Non-Af Amer) 20 (> 60) L 03/24/17 04:19 BUN/Creatinine Ratio 36 (6-26) H 03/24/17 04:19 POC Glucose 141 (58-89) H 03/24/17 19:49 Phosphorus 6.2 mg/dL (2.3-4.7) H 03/23/17 04:39 Troponin I 0.34 ng/mL (0-0.03) H* 03/22/17 18:40 HDL Cholesterol 19 mg/dL (40-59) L 03/23/17 04:39 Free T3 1.56 pg/mL (1.71-3.71) L 03/22/17 05:55 Digoxin 2.8 ng/mL (0.8-2.0) H* 03/22/17 05:55 General appearance: Present: no acute distress - Respiratory Respiratory exam: Present: decreased breath sounds, CTAB Additional comments: Shallow inspiratory effort - Cardiovascular Cardiovascular exam: Present: +S1, +S2 - GI/Abdominal GI/Abdominal exam: Present: normal bowel sounds, soft - Extremities Exam Extremities exam: Present: normal capillary refill, normal inspection - Neurological Exam Additional comments: Drowsy, oriented to name only when awake - Skin Skin exam: Present: dry, pallor, warm Palliative Quality Palliative Quality: Screen for Code Status: Yes, Screen for Goals of Care: Yes, Screen for Pain: Yes, If Pain Regimen Started, Initiate Bowel Regimen: NA ( loose stools), Screen for Nausea/Vomitting: Yes Code Status: 03/22/17 05:15 Resuscitation Status: Active [RES] Routine Comment: Resuscitation Status: Full Code 03/24/17 09:42 DNR [Resuscitation Status: Active] [RES] Routine Comment: Resuscitation Status: [id number] 03/24/17 12:29 DNR [Resuscitation Status: Active] [RES] Routine Comment: Resuscitation Status: DNR-Comfort Care - Labs CBC & Chem 7: 03/24/17 04:19 03/24/17 04:19 Labs: Laboratory Results - last 24 hr 03/24/17 03/24/17 03/24/17 07:41 11:39 15:32 POC Glucose 73 107 H 100 H 03/24/17 19:49 POC Glucose 141 H - ABG Interpretation ABG results: PT/INR, D-dimer PT 36.4 Seconds (9.4-12.1) H 03/24/17 04:19 Consult Discharge Plan - Plan Referrals: Jasmeet Olivares, REAL ESTATE COORDINATOR [Advanced Practice Nurse] - (Pt is going to an ECF, no PCP appointment needed) Peter Kunz MD [Primary Care Provider] - Caity Demarco MD [Partnered Physician] - 04/12/17 2:30 pm Prescriptions: Haloperidol Oral Conc [Haldol] 1 mg PO Q6H PRN #10 mls PRN Reason: agitation LORazepam Oral Conc [Ativan Oral Conc] 0.5 mg SL Q4H PRN #15 mls PRN Reason: anxiety or agitation Morphine Oral CONC [Roxanol] 2.5 - 5 mg PO Q2H PRN #30 ml PRN Reason: pain or dyspnea
[2017-03-25] MEDS: cephALEXin 250 MG CAPSULE PO SCH (10:58)
== END 2017-03-25 12:15 | DRG 291 ==
LOC: 2NNU → SUATTDRO 05:15
PROVIDERS: ADMIT Internal Medicine; ATTEND Internal Medicine

== ENCOUNTER 2017-04-29 13:55 | Inpatient (IN) ==
--- NOTE | 2017-04-29 14:13 | Emergency Department Note ---
Disposition Clinical Impression: CHF exacerbation Qualifiers: Congestive heart failure type: combined Qualified Code(s): I50.43 - Acute on chronic combined systolic (congestive) and diastolic (congestive) heart failure Disposition: Admitted As Inpatient Condition: Undetermined Time of Disposition: 15:43 SOB HPI - General Chief Complaint: ED Shortness of Breath/Dyspnea Stated Complaint: "" CHAPITO" Time Seen by Provider: 04/29/17 14:01 Source: patient, EMS Mode of arrival: EMS Limitations: no limitations Nursing Notes Reviewed: Yes Vital Signs Reviewed: Yes - History of Present Illness 86-year-old female that is a DNR CC only arrives to [facility] emergency department with symptoms of congestive heart failure for which she is already receiving the DNR CC form. The patient states that she has had a 30 pound weight gain over the past few days. The patient has been on numerous medications and numerous admissions for this. The patient was recently taken off hospice but left is a DNR CC to keep the patient comfortable. The patient does not tolerate BiPAP. She is mildly hypoxic on room air and was placed on 2 L nasal cannula at 91% upon arrival by EMS. The patient is alert and answering questions appropriately. She is diffusely swollen in bilateral upper extremities, the left being worse than the right, bilateral lower extremities, abdomen. The patient does have mild amount of swelling in the left upper extremity more than the right but given the patient' s DNR CC status we will not perform any Doppler imaging with concern for DVT as this will not directly affect her comfort. We will however worked the patient up for CHF exacerbation and begin the patient on a nitroglycerin drip, administer Lasix, check basic labs to determine renal function. In addition the family is requesting we checked a digoxin level. We will administer high flow nasal cannula oxygen as the patient is mildly hypoxic at 89% on room air. Pt Subjective Complaint: shortness of breath Onset (ago): day(s) (4) Severity: moderate, severe Consistency/Duration: gradually worsening Improves with: oxygen, upright position Worsens with: lying flat Known history of: congestive heart failure Associated symptoms: Reports: denies other symptoms Treatment prior to arrival: oxygen Cough present: No Sputum production: No - Related Data Home oxygen amount: none Home Medications Medication Instructions Recorded Confirmed Bumetanide 0.5 mg PO DAILY 03/22/17 03/22/17 Levothyroxine Sodium [Levoxyl] 112 mcg PO DAILY 03/22/17 03/22/17 Previous Rx's Medication Instructions Recorded Haloperidol Oral Conc [Haldol] 1 mg PO Q6H PRN #10 mls 03/24/17 LORazepam Oral Conc [Ativan Oral 0.5 mg SL Q4H PRN #15 mls 03/24/17 Conc] Morphine Oral CONC [Roxanol] 2.5 - 5 mg PO Q2H PRN #30 ml 03/24/17 cephALEXin [Keflex] 250 mg PO BID 7 Days 03/25/17 Allergies Allergy/AdvReac Type Severity Reaction Status Date / Time codeine Allergy Hallucinati Verified 04/29/17 13:58 ng acetaminophen [From Tylenol] AdvReac See Verified 04/29/17 13:58 Comments metoclopramide [From Reglan] AdvReac See Verified 04/29/17 13:58 Comments midazolam [From Versed] AdvReac See Verified 04/29/17 13:58 Comments nalbuphine [From Nubain] AdvReac See Verified 04/29/17 13:58 Comments promethazine [From Phenergan] AdvReac See Verified 04/29/17 13:58 Comments All systems ED: reviewed and negative except as stated. Constitutional: Denies: fever, chills, weakness, weight change Cardiovascular: Reports: dyspnea on exertion, edema. Denies: chest pain, palpitations, syncope Respiratory: Reports: dyspnea. Denies: cough, wheezes, hemoptysis, stridor Gastrointestinal: Denies: abdominal pain, nausea, vomiting, diarrhea, constipation, hematemesis, melena, hematochezia Musculoskeletal: Denies: back pain, neck pain, arthralgia, myalgia Integumentary: Denies: rash, abrasion, lesions Neurological: Denies: headache, weakness, numbness, paresthesias, confusion, abnormal gait, vertigo Past Medical History - Past Medical History Attestation: Yes The following information was validated with the patient. Source: patient Medical history: Reports: atrial fibrillation, CHF, DVT, hypertension, myocardial infarction, thyroid disease, other Surgical history: Reports: orthopedic, other (ankle repair surgery), pacemaker/ AICD, AICD, pacemaker Psychiatric history: Reports: depression - Social History Smoking Status: Former smoker Smokeless Tobacco Status: No Alcohol use: Reports: none Drug use: Reports: none Physical Exam - General Limitations: no limitations General appearance: alert, in no apparent distress - Head Head exam: atraumatic, normocephalic, normal inspection - Neck Neck exam: Present: normal inspection, full ROM, trachea midline - Chest Chest inspection: Present: normal inspection, symmetric chest wall rise - Respiratory Respiratory exam: Present: other (Rales) - Cardiovascular Cardiovascular exam: Present: regular rate, normal rhythm, normal heart sounds - Abdominal Exam Abdominal exam: Present: soft, Non-Tender, distention. Absent: tenderness, guarding, rebound, rigidity - Extremities Exam Extremities exam: Present: full ROM, pedal edema (In upper and lower extremities , left upper extremity slightly more enlarged than right). Absent: tenderness - Neurological Exam Neurological exam: Present: alert - Skin Skin exam: Present: warm, dry, intact, normal color Course Vital Signs Temperature 98.0 F 04/29/17 13:59 Pulse Rate 75 04/29/17 13:59 Respiratory Rate 26 04/29/17 13:59 Blood Pressure 117/39 04/29/17 13:59 O2 Sat by Pulse Oximetry 92 04/29/17 13:59 Temperature 98.0 F 04/29/17 13:59 Pulse Rate 63 04/29/17 14:46 Respiratory Rate 14 04/29/17 14:46 Blood Pressure 100/58 04/29/17 14:46 O2 Sat by Pulse Oximetry 97 04/29/17 14:46 Oxygen Delivery Oxygen Delivery Bipap Shortness of Breath/Dyspnea - MDM Narrative Medical decision making narrative: Patient DNR CC and we administered comfort measures only here in the emergency department. This was discussed with power of health care attorney which was the patient's granddaughter. The patient was placed on BiPAP and was doing well with it. The patient was also initially placed on a nitroglycerin drip but the patient's systolic dropped to 95 after being larger for roughly 1 hour. We stopped the nitroglycerin administered Lasix. The patient's chest x-ray does demonstrate worsening bilateral pleural effusions. The patient is resting comfortably at this time. She does have a left upper extremity swelling that is worse than her right. We discussed possibly doing a DVT study on this but concluded that given the patient's DNR CC status this would not be in the best interest of the patient. This was discussed with the hospitalist upon admission, Dr. Koroma. - Medical Records Medical records reviewed: Yes I reviewed the patient's medical records. - Lab Data Lab results reviewed: Yes I reviewed the patient's lab results. Result diagrams: 04/29/17 14:43 Lab Results 04/29/17 Range/Units 14:43 Sodium 130 L (136-145) mEq/L Potassium 5.5 H (3.5-4.5) mEq/L Chloride 90 L (98-109) mEq/L Carbon Dioxide 29 (19-29) mEq/L BUN 53 H (7-20) mg/dL Creatinine 1.42 H (0.57-1.11) mg/dL Est GFR ( Amer) 42 L (> 60) Est GFR (Non-Af Amer) 35 L (> 60) BUN/Creatinine Ratio 37 H (6-26) Glucose 83 (70-99) mg/dL Calculated Osmolality 284 (280-300) Calcium 9.3 (8.6-10.8) mg/dL Digoxin 1.2 (0.8-2.0) ng/mL - Radiology Data Radiology results reviewed: Yes I reviewed the patient's radiology results. - EKG Data EKG attestation: Yes I reviewed and interpreted this EKG. EKG results narrative: Heart rate 62 bpm. A QTC 45 ms. Electronic ventricular pacemaker noted. No acute changes noted. Critical Care Time Critical Care Time: Yes Total Critical Care Time: 35 Attestation: Critical care time 35 minutes managing CHF and BiPAP. Attestation Statement - Attestation Attestation: Patient was seen with resident physician. I reviewed the history, physical, assessment and plan, and agree with the findings. I also personally evaluated this patient and had [id number] time with this patient. 86-year-old female who is a DNR CCA secondary to CHF presents to the emergency department with worsening shortness of breath and swelling throughout her body. Family states that the swelling is worse in the left arm the buttocks and lower extremities. She is gained approximately 25 pounds. She has also been noted to have worsening renal function recently. She has had multiple cardiac issues in the past and also has had blood clots as well. Patient herself says she feels a little bit short of breath but has not had any chest pain. No fevers or chills. On examination vital signs shows some hypoxia but otherwise were unremarkable. Heart has a murmur but regular rhythm. Lungs show crackles throughout. Extremities patient has increased swelling in the left upper extremity compared to the right upper extremity she also has bilateral lower extremity edema. Neurologically patient's alert and follows commands. ED course. Full workup for CHF will be done, and anticipated admission to the hospital for this patient. She is a DNR CCA and at this point ultrasound of the left upper extremity is not emergently indicated, although they may want to do this on the floor to rule out DVT. Additionally we will treat her for CHF on the ED and try to improve her comfort as we plan for admission to the hospital. Patient improved with treatment, but nitro drip had to be discontinued because of reduced blood pressure. Her breathing improved and she is also amenable to BiPAP. Hospitalist was notified. Patient will be admitted to the hospital. Critical care time 35 minutes. Agree with resident physician assessment plan.
[2017-04-29] MEDS ORDERED: Nitroglycerin 25 MG/250 ML INFUS..BTL IVC SCH (14:15)
[2017-04-29] MEDS ORDERED: Furosemide 40 MG/4 ML VIAL IVP ONE (14:30)
[2017-04-29 15:01] LABS: Calcium 9.3 mg/dL (8.6-10.8); Potassium 5.5 mEq/L (3.5-4.5)
[2017-04-29 15:10] LABS: Digoxin 1.2 ng/mL (0.8-2.0)
--- NOTE | 2017-04-29 16:46 | Internal Med History&Physical ---
<Gila Mojica - Last Filed: 04/29/17 16:43> Date of Encounter: 04/29/17 Time of Encounter: 16:15 Assessment and Plan (1) CHF (congestive heart failure) Current visit: Yes Status: Acute Pt presents to the ED from ECF with c/o increasing SOB and 30# weight gain over the last 2 weeks. ECF has been increasing Bumex in an effort to diurese. Patient was discharged from hospice to [facility] due to congestive heart failure on 03/25/2017. In the emergency department the gave patient Lasix 40 mg IV and she has had no urine output. The attempted nitroglycerin, however her blood pressure did not tolerate it. She is currently on BiPAP. Patient had an echocardiogram a 2016 with a suboptimal study with an estimated LVEF is 60%. Severely dilated right ventricle with mild to moderate RV hypokinesis. There is flattening of the IV septum consistent with RV pressure volume overload. There is a pacemaker noted in the right atrium and right ventricle. She is severely dilated right atrium. Aortic valve moderately calcified leaflets, aortic valve function is not well assessed suspect moderate aortic stenosis. Mild AR, severe TR. Chest x-ray showed moderate to large bilateral pleural effusions that were worse than last study. Lasix drip 10 mg per hour Palliative consult in the morning. Continue BiPAP Daily weight Strict I and O Marshall Qualifiers: Congestive heart failure type: unspecified congestive heart failure type Congestive heart failure chronicity: acute on chronic Qualified Code(s): I50.9 - Heart failure, unspecified (2) Essential hypertension Current visit: No Status: Chronic Pt is hypotensive now. Will hold BP meds. Continue to monitor vital signs and restart medications as needed. (3) CAD (coronary artery disease) Current visit: No Status: Chronic Denies chest pain. Will continue aspirin, but BP meds are held for hypotension. Continue to monitor. Qualifiers: Coronary Disease-Associated Artery/Lesion type: wainwright artery [place] vs. transplanted heart: wainwright heart Associated angina: without angina Qualified Code(s): I25.10 - Atherosclerotic heart disease of wainwright coronary artery without angina pectoris (4) Hypothyroidism Current visit: Yes Status: Chronic Chronic. Continue home medications. Qualifiers: Hypothyroidism type: unspecified Qualified Code(s): E03.9 - Hypothyroidism , unspecified (5) Hyperkalemia Current visit: No Status: Acute K+ 5.5 in setting of JORDAN. Will continue to monitor. Pt is on lasix gtt. Labs in am. (6) CKD (chronic kidney disease) stage 4, GFR 15-29 ml/min Current visit: No Status: Chronic Creat 1.25, GFR 35. Family is aware that renal function most likely will continue to decline with diuresis. Questions answered. Avoid nephrotoxins, NSAIDS. Continue to monitor labs. (7) Severe tricuspid regurgitation Current visit: Yes Status: Chronic Per Echo on 03/22/17. Pt is not a surgical candidate. Internal Medicine - H&P: HPI Admitted From: [facility] Plans for Post Hospital Care: Hospice - Medical Facility History of present illness: Ms. Medellin is a 86 year old female with a past medical history of CHF, CKD, CAD, hypothyroid, and severe tricuspid regurgitation. She was discharged from here on 03/[address] [facility] on Hospice. She has had a 30# weight gain over 2 weeks. The ECF has increased her Bumex several times in an attempt to diurese her, unsuccessfully. She is currently on bipap. Pt was given Lasix 40mg IV in the ED with no urine output into marshall bag. Pt was then put on a nitroglycerin gtt which her blood pressure could not handle. She has significant edema to LUE that has been present since her last discharge from here and remains unchanged, there is also some edema to the RUE that family reports is better than normal. Pt is alert and awake, answers questions appropriately. She has rales heard in anterior lung bazzi and 2+ pitting pedal edema. She is tolerating the bipap well and we will continue it, as well as add a lasix drip and palliative consult for tomorrow. Past Med Surg Social Fam HX - Past Medical History Medical history: atrial fibrillation, CHF, DVT, hypertension, myocardial infarction, thyroid disease, other Psychiatric history: depression - Past Surgical History Surgical History: orthopedic, other (ankle repair surgery), pacemaker/AICD, AICD , pacemaker - Social History Smoking Status: Former smoker Smokeless Tobacco Status: No Alcohol use: none Drug use: none - Family History Father Living Status: Hx Family Cardiac Disorders: Yes (CHF) Internal Medicine - H&P: Meds Bumetanide 1 mg PO DAILY 03/22/17 [History] Levothyroxine Sodium [Levoxyl] 112 mcg PO DAILY 03/22/17 [History] Rzkva-L-Jckfgrlheujec [Beano] 300 unit PO TID 04/29/17 [History] Aspirin [Ecotrin] 325 mg PO DAILY 04/29/17 [History] Isosorbide MONOnitrate (24 HR) [Imdur] 60 mg PO DAILY 04/29/17 [History] Lisinopril [Zestril] 5 mg PO DAILY 04/29/17 [History] Sulfamethoxazole/Trimeth DS [Bactrim DS] 1 tab PO BID 04/29/17 [History] Allergies codeine Allergy (Verified 04/29/17 13:58) Hallucinating acetaminophen [From Tylenol] Adverse Reaction (Verified 04/29/17 13:58) See Comments unknown metoclopramide [From Reglan] Adverse Reaction (Verified 04/29/17 13:58) See Comments unknown midazolam [From Versed] Adverse Reaction (Verified 04/29/17 13:58) See Comments unknown nalbuphine [From Nubain] Adverse Reaction (Verified 04/29/17 13:58) See Comments unknown promethazine [From Phenergan] Adverse Reaction (Verified 04/29/17 13:58) See Comments unknown All Systems PM: A 10-system review of systems was performed and is negative for pertinent findings except as documented above in the HPI. - Constitutional Constitutional: weakness, weight loss, no chills, no fever(s) - Cardiovascular Cardiovascular ROS IM: dyspnea, edema, no chest pain, no diaphoresis, no irregular heart rhythm - Respiratory Respiratory: dyspnea, no wheezing, no stridor, no chest congestion, no excessive phlegm production - Gastrointestinal Gastrointestinal: no diarrhea, no heartburn, no nausea, no vomiting - Musculoskeletal Musculoskeletal ROS IM: muscle weakness, no numbness, no stiffness - Integumentary Integumentary IM: erythema, no rash - Neurological Neurological ROS: weakness, no behavioral changes, no confusion, no dizziness, no tingling - Constitutional Vitals: Temp Pulse Resp BP Pulse Ox 98.0 F 63 18 95/50 97 04/29/17 13:59 04/29/17 14:46 04/29/17 16:29 04/29/17 16:29 04/29/17 14:46 General appearance: Present: mild distress, A&O X 3, pleasant, answers questions appropriately - Head Head exam: Present: normal inspection - ENT ENT exam: Present: normal exam, normal external ear exam - Respiratory Respiratory exam: Present: decreased breath sounds, rales, respiratory distress. Absent: chest wall tenderness, rhonchi, stridor, wheezes - Cardiovascular Cardiovascular exam: Present: RRR, +S1, +S2. Absent: diastolic murmur, distant heart sounds, systolic murmur - GI/Abdominal GI/Abdominal exam: Present: distended, normal bowel sounds, soft. Absent: hepatomegaly, tenderness - Extremities Exam Extremities exam: Present: pedal edema, warm. Absent: normal capillary refill, tenderness - Neurological Exam Neurological exam: Present: alert, no focal deficits. Absent: speech deficit - Skin Skin exam: Present: dry, normal color, warm Internal Med - H&P Results - Labs CBC & Chem 7: 04/29/17 14:43 <Stephane Brannon - Last Filed: 04/29/17 17:49> Date of Encounter: 04/29/17 Time of Encounter: 17:00 Internal Medicine - H&P: HPI History of present illness: Ms. Medellin is a 86 year old female All Systems PM: A 10-system review of systems was performed and is negative for pertinent findings except as documented above in the HPI. - Constitutional Vitals: Temp Pulse Resp BP Pulse Ox 98.0 F 63 18 95/50 97 04/29/17 13:59 04/29/17 14:46 04/29/17 16:29 04/29/17 16:29 04/29/17 14:46 Internal Med - H&P Results - Labs CBC & Chem 7: 04/29/17 14:43 - Attending Attestation I examined this patient and my medical decision-making was reviewed with the nurse practitioner. I agree with the documented history of present illness, review of systems, past medical, surgical social and family histories and examination findings, disposition and treatment plan as described above except to any changes set forth below. 86-year-old female patient with a history of severe tricuspid regurgitation, congestive heart failure with diastolic and right heart failure presented to the ER from retirement where she was on hospice. She had been having increasing swelling in her both upper extremities and in her lower abdomen despite use of Bumex. She was also having increasing shortness of breath even at rest. On examination, she has significant edema in both upper extremities and on over her lower abdominal wall. Heart sounds show normal S1 and S2. Basal crackles present in the lungs. Patient is currently requiring BiPAP. Acute on chronic diastolic/right-sided heart failure: Patient received Lasix in the ER but has not had any urine output. We will place her on Lasix drip due to her blood pressure being on the lower side. Monitor urine output. Daily weights. Discussed with family about options if patient's urine output does not improve. We will consult palliative care for help with patient's management. Patient is DNR CC DNI. Essential hypertension: Given her lower blood pressure, we will hold medications for now. Coronary artery disease: No chest pain at this time. Continue aspirin. Hypothyroidism: We will check TSH. Chronic kidney disease and injury: Patient's medical record shows a diagnosis of chronic kidney disease stage IV. However creatinine is 1.25 currently. Patient's family however does not recollect patient having chronic kidney disease. We will follow renal function especially as patient is receiving Lasix. High risk for complications.
[2017-04-29] MEDS ORDERED: Naloxone 0.4 MG/ML INJ IVP PRN (17:24)
[2017-04-29] MEDS ORDERED: Ondansetron ODT 4 MG TAB.RAPDIS SL PRN (17:24)
[2017-04-29] MEDS ORDERED: MOM Conc 10 ML UD.LIQ PO PRN (17:24)
[2017-04-29] MEDS ORDERED: Mag Hydrox/Al Hydrox/Simeth 30 ML UDC PO PRN (17:24)
[2017-04-29] MEDS: Furosemide 240 MG in D5% in Water 96 ML IVC SCH (17:58)
[2017-04-29] MEDS: Sulfamethoxazole/Trimeth DS 1 EACH TABLET PO SCH (19:47)
[2017-04-30 04:24] LABS: Eosinophils # 0.2 K/mcL (0.0-0.6); Eosinophils % 5.1 %; Hematocrit 27.4 % (35.3-44.9); Hemoglobin 8.9 g/dL (11.5-15.4); Immature Granulocytes % 0.3 % (0-4); Lymphocytes # 0.4 K/mcL (0.6-4.6); Mean Corpuscular HGB Conc 32.5 g/dL (31.6-35.5); Mean Corpuscular Hemoglobin 30.9 pg (28.0-33.3); Mean Corpuscular Volume 95.1 fL (83.0-100.0); Mean Platelet Volume 10.4 fL (9.4-12.4); Monocytes # 0.5 K/mcL (0.0-1.3); Monocytes % 15.7 %; Neutrophils # 1.8 K/mcL (1.6-8.9); Platelet Count 137 K/mcL (140-400); Red Blood Count 2.88 M/mcL (3.82-4.97); Red Cell Distribution Width 16.7 % (11.5-14.5); Segmented Neutrophils % 62.9 %
[2017-04-30 05:37] LABS: Potassium 5.8 mEq/L (3.5-4.5)
[2017-04-30] MEDS: Pantoprazole 40 MG VIAL IVP SCH (08:31)
[2017-04-30] MEDS: Sulfamethoxazole/Trimeth DS 1 EACH TABLET PO SCH ×2 (08:32→20:55)
[2017-04-30] MEDS: Aspirin Enteric Coated 325 MG Tablet PO SCH (08:32)
--- NOTE | 2017-04-30 11:47 | Cardiology Consult Note ---
<GilmerMerissa J - Last Filed: 04/30/17 13:06> Date of Encounter: 04/30/17 Time of Encounter: 11:46 Assessment and Plan (1) Severe tricuspid regurgitation Current Visit: Yes Status: Chronic Per cardiology: -Echo 03/22/17 with LVEF 60%, severely dilated right ventricle, mild-moderate RV hypokinesis, flattening of the IV septum consistent with RV pressure/voume overload, severely dilated right atrium, moderately calcified aortic valve leaflets with reduced systolic excursion, moderate , mild AR, severe (wide open) TR. -Patient with fluid overload on exam. 3+ pitting edema to bilateral upper extremities. -Per review of records, patient is up 31.9 pounds since March. -PLeural effusion noted per chest x-ray. -Patient had been on lasix and nitro drips. Unable to give due to hypotension. -BPs 80-90s systolic. -Of note, patient is DNR-CC/DNI -I had a lengthy discussion with family regarding patient's condition and plan of care. Patient has poor prognosis due to severe wide open TR and RV failure. I spoke at length regarding need for possible invasive lines, vasopressors, and positive inotropes for aggressive measures. Daughter states understanding and states she does not want aggressive measures. -Palliative care will be called back in to re-assess and give suggestions for comfort measures. -Cardiology will sign off and will follow in outpatient setting. Follow up set. (2) Dyspnea Current Visit: Yes Status: Acute Per cardiology: -Shortness of breath in the setting of RV failure and severe TR. -On bipap. Qualifiers: Dyspnea type: unspecified Qualified Code(s): R06.00 - Dyspnea, unspecified Discussion w patient/family: The assessment and plan as outlined above was discussed with the patient and/or family members who expressed understanding and agreement. All questions were answered. Thank you for involving us in the care of your patient. Please call with any questions. History of Present Illness Consult date: 04/30/17 Requesting physician: Gila Mojica Consult reason: CHF Chief complaint: shortness of breath History of present illness: Ms. Medellin is a 86 year old female with a relevant past medical history of CAD, CHF, valvular heart disease, , AICD/pacemaker. Patient presented to [facility] with complaints of increased shortness of breath and 30 pound weight gain. Patient was previously on hospice care at [facility]. Family states patient has increased edema to upper extremities. She denies chest pain. ADmits to increased shortness of breath and increased fatigue. Past Med Surg Social Fam HX - Past Medical History Attestation: Yes The following information was validated with the patient. Source: patient, old records reviewed, obtained from family Medical history: atrial fibrillation, CHF, DVT, hypertension, myocardial infarction, thyroid disease, other Psychiatric history: depression - Past Surgical History Surgical History: orthopedic, other, pacemaker/AICD, AICD, pacemaker - Social History Smoking Status: Former smoker Smokeless Tobacco Status: No Alcohol use: none Drug use: none - Family History Father Living Status: Hx Family Cardiac Disorders: Yes (CHF) Medications and Allergies Bumetanide 1 mg PO DAILY 03/22/17 [History] Levothyroxine Sodium [Levoxyl] 112 mcg PO DAILY 03/22/17 [History] Zrnai-Z-Qdtddpcyxjxsd [Beano] 300 unit PO TID 04/29/17 [History] Aspirin [Ecotrin] 325 mg PO DAILY 04/29/17 [History] Isosorbide MONOnitrate (24 HR) [Imdur] 60 mg PO DAILY 04/29/17 [History] Lisinopril [Zestril] 5 mg PO DAILY 04/29/17 [History] Sulfamethoxazole/Trimeth DS [Bactrim DS] 1 tab PO BID 04/29/17 [History] Allergies codeine Allergy (Verified 04/29/17 13:58) Hallucinating acetaminophen [From Tylenol] Adverse Reaction (Verified 04/29/17 13:58) See Comments unknown lorazepam [From Ativan] Adverse Reaction (Verified 04/29/17 19:20) Difficulty Breathing metoclopramide [From Reglan] Adverse Reaction (Verified 04/29/17 13:58) See Comments unknown midazolam [From Versed] Adverse Reaction (Verified 04/29/17 13:58) See Comments unknown nalbuphine [From Nubain] Adverse Reaction (Verified 04/29/17 13:58) See Comments unknown promethazine [From Phenergan] Adverse Reaction (Verified 04/29/17 13:58) See Comments unknown All Systems Review: A 10-system review of systems was performed and is negative for pertinent findings except as documented above in the HPI. - Constitutional Constitutional: weight gain - Cardiovascular Cardiovascular: as per HPI, dyspnea at rest, dyspnea on exertion Physical Examination Vital Signs, Last 4 Hours Pulse Resp BP Pulse Ox 04/30/17 11:00 94/43 04/30/17 10:07 60 14 87/45 90 04/30/17 09:34 88/40 04/30/17 08:56 90 04/30/17 08:05 92/46 General: Conversant (On Bipap. ) HEENT: Atraumatic, Normocephaly, Mucus Membranes Moist Neck: No JVD, Normal carotid pulses Cardiac: Reg Rate and Rhythm, Other (Systolic murmur noted. ) Lungs: Other (Lung sounds diminished throughout. ) Neuro: Alert and responsive, No focal deficits noted Abdomen: Soft, Non-Tender Skin: No rashes noted on visualized skin Musculoskeletal: No Chest Wall Tenderness Extremities: No Clubbing, No Cyanosis, Normal Pulses, Other (3+ bilateral upper extremity pitting edema. Mild bilateral pedal edema noted. ) Results 04/30/17 03:37 04/30/17 05:12 Lab Results Impressions Chest X-Ray 04/29/17 14:02 IMPRESSION: Moderate to large bilateral pleural effusions, increased from prior exam. D/ / Jonny Staples MD / Jonny Staples MD Interpreting Provider: Jonny Staples MD Active Medications Al Hydrox/Mg Hydrox/Simethicone (Maalox) 15 ml PO Q6HR PRN PRN Reason: Dyspepsia Stop: 10/29/17 17:25 Aspirin (Aspirin Ec) 325 mg PO DAILY GUY Stop: 10/30/17 09:01 Last Admin: 04/30/17 08:32 Dose: 325 mg Docusate Sodium (Colace) 100 mg PO BID PRN PRN Reason: Constipation Stop: 10/29/17 17:25 Furosemide 240 mg/ Dextrose 120 mls @ 5 mls/hr IVC .Q24H GUY PRN Reason: 10 MG/HR Stop: 10/29/17 16:42 Last Admin: 04/29/17 17:58 Dose: 10 mg/hr, 5 mls/hr Levothyroxine Sodium (Synthroid) 112 mcg PO 0630 GUY Stop: 10/30/17 06:31 Last Admin: 04/30/17 06:07 Dose: 112 mcg Magnesium Hydroxide (Milk Of Magnesia Conc) 10 ml PO DAILY PRN PRN Reason: Indigestion Stop: 10/29/17 17:25 Naloxone HCl (Narcan) 0.4 mg IVP Q2MIN PRN PRN Reason: Opioid Reversal Stop: 10/29/17 17:25 Ondansetron HCl (Zofran Odt) 4 mg SL Q8HR PRN PRN Reason: Nausea And Vomiting Stop: 10/29/17 17:25 Pantoprazole Sodium (Protonix) 40 mg IVP DAILY GUY Stop: 10/30/17 09:01 Last Admin: 04/30/17 08:31 Dose: 40 mg Pharmacy Profile Note (Patient Taking Own Medication) 0 each PO TID GUY Stop: 10/29/17 21:01 Last Admin: 04/30/17 08:32 Dose: Not Given Trimethoprim/Sulfamethoxazole (Bactrim Ds) 1 each PO BID GUY Stop: 10/29/17 21:01 Last Admin: 04/30/17 08:32 Dose: 1 each Laboratory Tests 04/30/17 04/30/17 03:37 05:12 WBC 2.9 L Hgb 8.9 L Potassium 5.8 H BUN 56 H Creatinine 1.54 H - Imaging and Cardiology Chest Xray: report reviewed Echo: report reviewed - EKG Interpretation EKG results cardiology: other (Telemetry reviewed with average HR 63, paced. No significant events noted.) Consult Discharge Plan - Plan Referrals: NO,PCP [Primary Care Provider] - <Tamia Kuo - Last Filed: 04/30/17 15:05> Date of Encounter: 04/30/17 Assessment and Plan Discussion w patient/family: The assessment and plan as outlined above was discussed with the patient and/or family members who expressed understanding and agreement. All questions were answered. Thank you for involving us in the care of your patient. Please call with any questions. History of Present Illness History of present illness: Ms. Medellin is a 86 year old female All Systems Review: A 10-system review of systems was performed and is negative for pertinent findings except as documented above in the HPI. Physical Examination Vital Signs, Last 4 Hours Temp Pulse Resp BP Pulse Ox 04/30/17 13:38 96/49 04/30/17 13:00 106/51 04/30/17 12:09 96.2 F L 68 15 97/56 90 04/30/17 11:00 94/43 Results 04/30/17 03:37 04/30/17 05:12 Lab Results 04/30/17 04/30/17 03:37 05:12 WBC 2.9 L Hgb 8.9 L Hct 27.4 L Plt Count 137 L Sodium 131 L Potassium 5.8 H Chloride 91 L Carbon Dioxide 33 H BUN 56 H Creatinine 1.54 H Glucose 70 Calcium 9.0 - Attending Attestation I examined this patient and my medical decision-making was reviewed with the HOTEL CASINO FLOORPERSON/PA/Advanced Practice Nurse/Resident Physician. I agree with the documented findings, disposition and treatment plan. Ms. Medellin presents with acute decompensated right sided heart failure. Low blood pressures have made diuresis difficult. Had a long discussion with her daughter who expressed interest in conservative management. They are not interested in aggressive care and would like to make the patient comfortable. Agree with Palliative care consult. Will continue to attempt IV diuresis without escalating care.
--- NOTE | 2017-04-30 12:12 | Palliative - Consult Note ---
Date of Encounter: 04/30/17 Time of Encounter: 11:00 - Assessment and Plan (1) Dyspnea Current Visit: Yes Status: Acute Assessment and plan: Dyspnea with conversation. Patient with CHF. Plan: 1. Supplemental O2 - Current rate of 5L per NC 2. Bipap PRN 3. Francis 4. Strict I&O 5. Position for comfort 6. Cardiology consult pending 7. Will add low dose Roxanol for comfort Qualifiers: Dyspnea type: unspecified Qualified Code(s): R06.00 - Dyspnea, unspecified (2) Anxiety Current Visit: No Status: Acute Assessment and plan: Add low dose Ativan PRN for comfort (3) Goals of care, counseling/discussion Current Visit: Yes Status: Acute Assessment and plan: Daughters report that they desire mother to return to [facility]. I questioned them about re-enrolling in Hospice care but they state that they would like to try rehab again. I discussed that patient is fragile and not responding well to diuretics as the Lasix is off at present due to hypotension. Cardiology consult pending. Patient is DNRCC-A, DNI and I will follow-up on outcome of Cardiology meeting. Palliative-CN HPI - Data of Consult Patient: known to practice within the last 3 years Consult date: 04/30/17 Requesting Physician: Gila Mojica CNP Primary Care Provider: PCP NO - Consult Narrative Palliative Care/Comfort Measures: Palliative care Reason for consult: Goals of Care History of present illness: Ms. Medellin is a 86 year old female who is well known to the palliative care team. The patient has a history of CHF, atrial fibrillation, CAD, Pacer - deactivated AICD from last admission. Upon this consult the patient is in bed with NC oxygen at 5L. Patient has had a 30 lbs weight gain. Her two daughters Lucy and Camryn are at the bedside to facilitate obtaining a health history. The patient was DC'd krystenom Megan 03/25/17 to [facility] with Hospice care for end stage CHF. The daughters report signing her out 2 weeks ago to begin therapy at the [facility]. They report that she was showing improvement with therapy and has now presented with fluid overload. The patient is frail, alert and oriented. The patient was admitted for CHF and placed on a Lasix gtt but it is currently off d /t hypotension. This palliative care consult is for goals of care discussion. CC: Gila Mojica, DELORES Past Med Surg Social Fam HX - Past Medical History Attestation: Yes The following information was validated with the patient. Source: patient, old records reviewed, obtained from family Medical history: atrial fibrillation, CHF, DVT, hypertension, myocardial infarction, thyroid disease, other Psychiatric history: depression - Past Surgical History Surgical History: orthopedic, other, pacemaker/AICD, AICD, pacemaker - Social History Smoking Status: Former smoker Smokeless Tobacco Status: No Alcohol use: none Drug use: none - Family History Father Living Status: Hx Family Cardiac Disorders: Yes (CHF) Medications and Allergies Bumetanide 1 mg PO DAILY 03/22/17 [History] Levothyroxine Sodium [Levoxyl] 112 mcg PO DAILY 03/22/17 [History] Sdszf-I-Gbhgaeigjdbdk [Beano] 300 unit PO TID 04/29/17 [History] Aspirin [Ecotrin] 325 mg PO DAILY 04/29/17 [History] Isosorbide MONOnitrate (24 HR) [Imdur] 60 mg PO DAILY 04/29/17 [History] Lisinopril [Zestril] 5 mg PO DAILY 04/29/17 [History] Sulfamethoxazole/Trimeth DS [Bactrim DS] 1 tab PO BID 04/29/17 [History] Allergies codeine Allergy (Verified 04/29/17 13:58) Hallucinating acetaminophen [From Tylenol] Adverse Reaction (Verified 04/29/17 13:58) See Comments unknown lorazepam [From Ativan] Adverse Reaction (Verified 04/29/17 19:20) Difficulty Breathing metoclopramide [From Reglan] Adverse Reaction (Verified 04/29/17 13:58) See Comments unknown midazolam [From Versed] Adverse Reaction (Verified 04/29/17 13:58) See Comments unknown nalbuphine [From Nubain] Adverse Reaction (Verified 04/29/17 13:58) See Comments unknown promethazine [From Phenergan] Adverse Reaction (Verified 04/29/17 13:58) See Comments unknown All systems: reviewed and no additional remarkable complaints except as stated ( Swelling all over, SOB, dyspnea, and low urine output) - Constitutional Constitutional ROS PAL: fatigue - EENT Eyes: requires corrective lenses Ears: decreased hearing - Cardiovascular Cardiovascular ROS: orthopnea, pedal edema (1+) - Respiratory Respiratory: dyspnea, dyspnea on exertion - Gastrointestinal Gastrointestinal: bloating - Genitourinary Palliative ROS female: urinary incontinence - Musculoskeletal Musculoskeletal ROS IM: muscle weakness - Integumentary ROS Integumentary: erythema (to coccyx, skin intact) - Neurological Neurological ROS: weakness Palliative Care-Exam - Constitutional Vitals: Temp Pulse Resp BP Pulse Ox 96.7 F L 60 14 94/43 90 04/30/17 07:02 04/30/17 10:07 04/30/17 10:07 04/30/17 11:00 04/30/17 10:07 General appearance: Present: cooperative - Head Head Exam: Present: atraumatic, normal inspection, normocephalic - Eye Eye exam: Present: PERRL Pupils: Present: PERRL - ENT ENT exam: Present: mucous membranes moist - Neck Neck exam: Present: full ROM - Respiratory Respiratory exam: Present: decreased breath sounds, rales - Expanded Respiratory Exam Location: decreased breath sounds: Left, Right, Lower, rales: Left, Right, Upper (scattered) - Cardiovascular Cardiovascular exam: Present: irregular rhythm, +S1, +S2 - Expanded Cardiovascular Exam Peripheral pulses: 1+: Femoral (L) PM, Femoral (R) PM, Posterior Tibialis (L), Posterior Tibialis (R), Dorsalis Pedis (L) PM, Dorsalis Pedis (R) PM, 2+: Carotid (L) PM, Carotid (R) PM, Radial (L), Radial (R) - GI/Abdominal Exam GI/Abdominal exam: Present: distended, normal bowel sounds, soft - Expanded GI/Abdominal Exam GI/Abdominal exam: Present: ascites - Rectal Rectal exam: Present: deferred - Catheter Type: Urethral (Francis) (clear yellow urine) - Expanded Upper Extremities Exam Shoulder exam: Present: full ROM Upper Arm exam: Present: full ROM Elbow exam: Present: full ROM (generalized edema to upper arms - 3 -4 +) Hand wrist exam: Present: swelling (left hand with 4+ pitting edema) - Expanded Lower Extremities Exam Upper Leg exam: Present: swelling (bilateral thighs 4+ pitting edema) - Back Exam Back exam: Present: tenderness - Neurological Exam Neurological exam: Present: alert, oriented X3 - Psychiatric Psychiatric exam: Present: normal affect - Skin Skin exam: Present: erythema (coccyx, intact) Internal Medicine - CN: Reslt - Labs CBC & Chem 7: 04/30/17 03:37 04/30/17 05:12 Labs: Short CBC 04/30/17 Range/Units 03:37 WBC 2.9 L (4.3-11.1) K/mcL Hgb 8.9 L (11.5-15.4) g/dL Hct 27.4 L (35.3-44.9) % Plt Count 137 L (140-400) K/mcL Neutrophils # 1.8 (1.6-8.9) K/mcL BMP 04/30/17 05:12 Sodium 131 L Potassium 5.8 H Chloride 91 L Carbon Dioxide 33 H BUN 56 H Creatinine 1.54 H Glucose 70 Calcium 9.0 Consult Discharge Plan - Plan Referrals: NO,PCP [Primary Care Provider] - Palliative Quality Palliative Quality: Screen for Code Status: Yes, Screen for Goals of Care: Yes, Screen for Pain: Yes, If Pain Regimen Started, Initiate Bowel Regimen: Yes, Screen for Nausea/Vomitting: Yes Code Status: 04/29/17 17:24 Resuscitation Status: Active [RES] Routine Comment: Resuscitation Status: [id number]
--- NOTE | 2017-04-30 14:36 | Electrocardiograph Report ---
[address] [place], [place] [address] Test Date: 2017-04-29 Pat Name: Camryn Medellin Department: 102 Room: 3B41 Gender: F Test Cell Technician: Rashawn : 1930 Requested By: Mychal Murphy Order Number: [id number] Reading MD: Tamia Kuo Measurements Intervals [place] Rate: 62 P: MI: 0 QRS: -78 QRSD: 186 T: 82 QT: 480 QTc: 485 Interpretive Statements ELECTRONIC VENTRICULAR PACEMAKER Electronically Signed On 04-30-2017 14:34:26 EDT by Tamia Kuo
--- NOTE | 2017-04-30 15:05 | Event Note ---
Date of Encounter: 04/30/17 Time of Encounter: 14:00 Conducted family meeting with daughters Lucy and Camryn. Patient and family still desire management for SOB and understand that patient is not candidate for aggressive ICU management. Patient was on Lasix gtt to facilitate diuresis but patient developed hypotension with gtt. Lasix currently off. Patient alert, agrees to wear Bipap and continue management of fluid overload for CHF. Goals of care are for continued management of fluid overload with medications. Patient with large family and will transition to palliative care bed to manage symptoms of fluid overload from CHF. Family understands that patient is fragile and is not responding well to current regimen. I discussed adding low dose morphine for SOB. Patient and family agree but wish to only use this if needed. I discussed that patient can be transitioned to Hospice care if continued decline in hemodynamic status and output. Family agrees to transfer to [facility] family room to support large family and continue medical management for fluid overload. I explained that patients overall condition is not good. Offered family support and explained POC to patient. Patient understands the need to wear Bipap and transition to larger room. Prayer provided and spiritual concerns addressed. Family is struggling with decision to transition to comfort care. Will continue current treatments and follow daily. Case discussed with Gila Mojica CNP. Patient will be transferred to . I anticipate transition to [facility] when patient and family are ready or medical management has been exhausted.
[2017-04-30] MEDS ORDERED: Morphine Oral CONC 5 MG/0.25 ML ORAL.SYG PO PRN (15:22)
--- NOTE | 2017-04-30 16:39 | Internal Med Progress Note ---
Date of Encounter: 04/30/17 Time of Encounter: 10:00 - Assessment and plan (1) CHF (congestive heart failure) Current Visit: Yes Status: Acute Assessment and plan: Patient has 3+ pitting edema to left upper extremity, 2+ pitting to right upper extremity. 2+ pitting pedal edema bilaterally. Lungs are diminished throughout. Patient is currently on BiPAP. She has been largely unable to tolerate the Lasix drip due to blood pressure issues. Her blood pressure did not tolerate the nitroglycerin drip. Patient also has renal disease since preventing Lasix IV. Echocardiogram in Mar, 2017 LVEF 60%, severely dilated RV with mild to moderate RV hypokinesis. IV flattening consistent with RV pressure volume overload. Pacemaker noted in the right atrium and right ventricle. Severely dilated right atrium, aortic valve moderately calcified leaflets, aortic valve function is not well assessed but suspect moderate aortic stenosis. Mild AR, severe TR ( wide open). She was evaluated by cardiology today. They discussed patient's poor prognosis and daughter, peel-away, so she does not want aggressive measures done. Patient has also been seen by palliative care today and she has been moved to [facility] for palliative care. Cardiology has signed off. I appreciate the recommendations and consultations of both cardiology and palliative care. Orders per palliative care. Qualifiers: Congestive heart failure type: unspecified congestive heart failure type Congestive heart failure chronicity: acute on chronic Qualified Code(s): I50.9 - Heart failure, unspecified (2) Essential hypertension Current Visit: No Status: Chronic Assessment and plan: Blood pressure medicines have been held at this time due to intermittent hypotension. Patient's blood pressure is labile, Lasix drip intermittently as blood pressure tolerates. (3) CAD (coronary artery disease) Current Visit: No Status: Chronic Assessment and plan: Continue aspirin, BP meds are held due to hypotension. Orders per palliative care. Qualifiers: Coronary Disease-Associated Artery/Lesion type: [place] artery [place] vs. transplanted heart: [place] heart Associated angina: without angina Qualified Code(s): I25.10 - Atherosclerotic heart disease of [place] coronary artery without angina pectoris (4) Hypothyroidism Current Visit: Yes Status: Chronic Assessment and plan: Orders per palliative care. Qualifiers: Hypothyroidism type: unspecified Qualified Code(s): E03.9 - Hypothyroidism , unspecified (5) Hyperkalemia Current Visit: No Status: Acute (6) CKD (chronic kidney disease) stage 4, GFR 15-29 ml/min Current Visit: No Status: Chronic (7) Severe tricuspid regurgitation Current Visit: Yes Status: Chronic Assessment and plan: Per echocardiogram. Patient is not a surgical candidate. The prognosis is poor. - Subjective Interval history: Had multiple interactions with this patient and family today. He was unsure for most of the day about their wishes regarding patient's condition, CODE STATUS, plan of care. Patient was still alert, oriented, answers questions appropriately. She has been on and off the Lasix drip a couple of times today due to blood pressure. We have tried to keep the BiPAP on her to assist not only with diuresis, but her breathing and blood pressure. Patient has been evaluated by cardiology and palliative care today. The family wishes to keep her condition a secret from the patient. The patient is not aware that her defibrillator has been turned off. They do not wish the patient to know that she is being seen by palliative care or that she may go back to hospice. Patient has been transferred to for palliative care. - Constitutional Vitals: Temp Pulse Resp BP Pulse Ox 96.2 F L 60 16 85/46 93 04/30/17 12:09 04/30/17 15:36 04/30/17 15:36 04/30/17 15:36 04/30/17 15:36 General appearance: Present: mild distress, A&O X 3, answers questions appropriately - Head Head exam: Present: normal inspection - Eye Eye exam: Present: normal appearance, conjuntiva pink - ENT ENT exam: Present: mucous membranes moist, normal exam - Respiratory Respiratory exam: Present: decreased breath sounds, rales. Absent: stridor, wheezes, tachypnea - Cardiovascular Cardiovascular exam: Present: systolic murmur Additional comments: She has severe TR and plus 3/6 murmur heard in left chest. - GI/Abdominal GI/Abdominal exam: Present: normal bowel sounds, soft. Absent: tenderness - Extremities Exam Extremities exam: Present: pedal edema, warm - Neurological Exam Neurological exam: Present: alert, no focal deficits. Absent: facial droop, speech deficit - Skin Skin exam: Present: dry, warm Internal Medicine: Result - Labs CBC & Chem 7: 04/30/17 03:37 04/30/17 05:12 Labs: Short CBC 04/30/17 Range/Units 03:37 WBC 2.9 L (4.3-11.1) K/mcL Hgb 8.9 L (11.5-15.4) g/dL Hct 27.4 L (35.3-44.9) % Plt Count 137 L (140-400) K/mcL Neutrophils # 1.8 (1.6-8.9) K/mcL BMP 04/30/17 05:12 Sodium 131 L Potassium 5.8 H Chloride 91 L Carbon Dioxide 33 H BUN 56 H Creatinine 1.54 H Glucose 70 Calcium 9.0 Consult Discharge Plan - Plan Referrals: NO,PCP [Primary Care Provider] -
[2017-05-01] MEDS: Sulfamethoxazole/Trimeth DS 1 EACH TABLET PO SCH (08:47)
[2017-05-01] MEDS: Pantoprazole 40 MG VIAL IVP SCH (08:47)
[2017-05-01] MEDS: Furosemide 240 MG in D5% in Water 96 ML IVC SCH ×2 (08:47→16:09)
[2017-05-01] MEDS: Aspirin Enteric Coated 325 MG Tablet PO SCH (08:47)
--- NOTE | 2017-05-01 10:06 | Palliative Progress Note ---
Date of Encounter: 05/01/17 Time of Encounter: 15:20 - Assessment and plan (1) Dyspnea Current Visit: Yes Status: Acute Assessment and plan: Blood pressure continues to decrease with Furosemide. She is tolerating bipap at this time. She has low dose Roxanol if needed but has not utilized. Family states that she had previous respiratory suppression with use. Monitor Qualifiers: Dyspnea type: unspecified Qualified Code(s): R06.00 - Dyspnea, unspecified (2) Goals of care, counseling/discussion Current Visit: No Status: Acute Assessment and plan: Met with 2 sons, 2 daughters and pt. Family desires patient to make decisions. I did attempt to speak with pt regarding issues with severe TR, RV failure and inability to treat with meds r/t hypotension. Discussed that we can provide comfort care, to assist with her pain and work of breathing, or if she desires to be aggressive, would require transition to ICU, most likely requiring central lines, which have risks. Discussed that even with that aggressive care, we cannot fix the underlying problems with her heart, and this would likely reoccur again. Patient continues to states "she wants to live". Family asking if cardiology can come back and speak with pt while she is alert. While pt is alert and oriented x2, I am not convinced that she is able to take in and process this information. Family believes she can and will continue to converse with her regarding this. Patient is [employer] - offered to contact clergy, family states they were here this am, and will visit when needed. Will continue to follow and assist as needed. (3) CHF (congestive heart failure) Current Visit: Yes Status: Acute Qualifiers: Congestive heart failure type: unspecified congestive heart failure type Congestive heart failure chronicity: acute on chronic Qualified Code(s): I50.9 - Heart failure, unspecified (4) Severe tricuspid regurgitation Current Visit: Yes Status: Chronic - Time Spent With Patient Total time spent is greater than 50% in coordination of care (as documented) at patient's floor/unit and/or counseling patient: 25 - 35 minutes - Subjective Interval history: Patient awake and alert, resting on bipap. Son at bedside just flew in from [place]. No other family present. Patient denies any pain or discomfort. States bipap helping her shortness of breath. Blood pressure was back up this am, and Furosemide drip restarted, however shortly after, blood pressure decreased quickly. - Constitutional Vitals: Abnormal lab results WBC 2.9 K/mcL (4.3-11.1) L 04/30/17 03:37 RBC 2.88 M/mcL (3.82-4.97) L 04/30/17 03:37 Hgb 8.9 g/dL (11.5-15.4) L 04/30/17 03:37 Hct 27.4 % (35.3-44.9) L 04/30/17 03:37 RDW 16.7 % (11.5-14.5) H 04/30/17 03:37 Plt Count 137 K/mcL (140-400) L 04/30/17 03:37 Lymphocytes # 0.4 K/mcL (0.6-4.6) L 04/30/17 03:37 Sodium 131 mEq/L (136-145) L 04/30/17 05:12 Potassium 5.8 mEq/L (3.5-4.5) H 04/30/17 05:12 Chloride 91 mEq/L (98-109) L 04/30/17 05:12 Carbon Dioxide 33 mEq/L (19-29) H 04/30/17 05:12 BUN 56 mg/dL (7-20) H 04/30/17 05:12 Creatinine 1.54 mg/dL (0.57-1.11) H 04/30/17 05:12 Est GFR ( Amer) 39 (> 60) L 04/30/17 05:12 Est GFR (Non-Af Amer) 32 (> 60) L 04/30/17 05:12 BUN/Creatinine Ratio 36 (6-26) H 04/30/17 05:12 General appearance: Present: no acute distress - Respiratory Respiratory exam: Present: decreased breath sounds, CTAB - Cardiovascular Cardiovascular exam: Present: irregular rhythm - GI/Abdominal GI/Abdominal exam: Present: normal bowel sounds, soft - Additional comments: Francis with clear yellow urine - Extremities Exam Additional comments: Lower arme edematous. 2-3+ edema to bilateral lower extremites and edema noted through thighs and hips as well. - Neurological Exam Neurological exam: Present: alert, oriented X3 Additional comments: Generalized weakness - Skin Skin exam: Present: dry, warm Palliative Quality Palliative Quality: Screen for Code Status: Yes, Screen for Goals of Care: Yes, Screen for Pain: Yes, If Pain Regimen Started, Initiate Bowel Regimen: Yes, Screen for Nausea/Vomitting: Yes Code Status: 04/29/17 17:24 Resuscitation Status: Active [RES] Routine Comment: Resuscitation Status: [id number] - Labs CBC & Chem 7: 04/30/17 03:37 04/30/17 05:12 Consult Discharge Plan - Plan Referrals: NO,PCP [Primary Care Provider] -
--- NOTE | 2017-05-01 12:31 | Internal Med Progress Note ---
Date of Encounter: 05/01/17 Time of Encounter: 11:30 - Assessment and plan (1) Acute respiratory failure with hypoxia Current Visit: No Status: Acute Assessment and plan: Acute on chronic respiratory failure secondary to severe TR and RV failure. continue Lasix drip as BP permits O2 supplementation bipap support as tolerated Palliative care team on board to discuss goals of care with the family today. Patient was on hospice care prior to this hospitalization (2) CAD (coronary artery disease) Current Visit: No Status: Chronic Assessment and plan: no acute signs of angina present at this time continue ASA holding lisinopril and Imdur given BP readings Qualifiers: Coronary Disease-Associated Artery/Lesion type: [place] artery [place] vs. transplanted heart: [place] heart Associated angina: without angina Qualified Code(s): I25.10 - Atherosclerotic heart disease of [place] coronary artery without angina pectoris (3) CHF (congestive heart failure) Current Visit: Yes Status: Acute Assessment and plan: Echocardiogram in Mar, 2017 LVEF 60%, severely dilated RV with mild to moderate RV hypokinesis. IV flattening consistent with RV pressure volume overload. Pacemaker noted in the right atrium and right ventricle. Severely dilated right atrium, aortic valve moderately calcified leaflets, aortic valve function is not well assessed but suspect moderate aortic stenosis. Mild AR, severe TR ( wide open). Family does not want any agressive surgical measures and palliative care team to discuss and establish goals of care with the the family today continue lasix gtt as BP permits O2 supplementation Qualifiers: Congestive heart failure type: unspecified congestive heart failure type Congestive heart failure chronicity: acute on chronic Qualified Code(s): I50.9 - Heart failure, unspecified (4) CKD (chronic kidney disease) stage 4, GFR 15-29 ml/min Current Visit: No Status: Chronic Assessment and plan: renal function at baseline will continue to monitor (5) Goals of care, counseling/discussion Current Visit: No Status: Acute Assessment and plan: Palliative care on board and consultation appreciated (6) Severe tricuspid regurgitation Current Visit: Yes Status: Chronic - Subjective Interval history: Patient seen and examined with family present at bedside. Patient's breathing status remains labile, requiring high flow Oxygen therapy and not able to tolerate bipap support. She is currently on lasix drip intermittently given BP readings. She is weak but alert oriented to self, family, and place. - Constitutional Vitals: Temp Pulse Resp BP Pulse Ox 97.4 F L 60 19 104/58 91 05/01/17 12:15 05/01/17 12:15 05/01/17 12:15 05/01/17 12:15 05/01/17 12:21 General appearance: Present: A&O X 2, mild distress (respiratory distress), answers questions appropriately - Head Head exam: Present: atraumatic, normocephalic - Eye Eye exam: Present: conjuntiva pink, sclera anicteric - Respiratory Respiratory exam: Present: respiratory distress (diffuse crackles bilaterally) - Cardiovascular Cardiovascular exam: Present: RRR, +S1, +S2 - GI/Abdominal GI/Abdominal exam: Present: normal bowel sounds, soft. Absent: tenderness - Extremities Exam Extremities exam: Absent: calf tenderness (Pitting edema in bilateral Lower extremities ) - Neurological Exam Neurological exam: Present: alert Internal Medicine: Result - Labs CBC & Chem 7: 04/30/17 03:37 04/30/17 05:12 Consult Discharge Plan - Plan Referrals: NO,PCP [Primary Care Provider] -
--- NOTE | 2017-05-01 15:51 | Event Note ---
Date of Encounter: 05/01/17 Time of Encounter: 15:00 - Cardiology Event Note Cardiology was asked to come and speak with patient regarding options for valve and heart failure. I spoke at length with patient and family regarding options. Discussed with patient regarding possible need for intubation, invasive lines, and possible CPR/Defibrilltaion. Dicussed also possible needs for transfer to another facility for advanced heart failure treatment. Of note, patient is still DNR-CCA/DNI. Patient wishes to think about options and re-evaluate in the morning. Family agreeable to whatever patient's wishes are. Cardiology will re- evaluate in the morning.
[2017-05-02 06:00] LABS: Basophils % 0.9 %; Eosinophils % 0.9 %; Hematocrit 29.8 % (35.3-44.9); Immature Granulocytes % 0.3 % (0-4); Lymphocytes # 0.6 K/mcL (0.6-4.6); Lymphocytes % 17.6 %; Mean Corpuscular HGB Conc 33.6 g/dL (31.6-35.5); Mean Corpuscular Hemoglobin 30.8 pg (28.0-33.3); Mean Corpuscular Volume 91.7 fL (83.0-100.0); Mean Platelet Volume 9.9 fL (9.4-12.4); Monocytes # 0.4 K/mcL (0.0-1.3); Monocytes % 13.3 %; Neutrophils # 2.2 K/mcL (1.6-8.9); Platelet Count 113 K/mcL (140-400); Red Blood Count 3.25 M/mcL (3.82-4.97); Red Cell Distribution Width 16.6 % (11.5-14.5)
[2017-05-02 06:13] LABS: Calcium 9.4 mg/dL (8.6-10.8); Magnesium 2.1 mg/dL (1.6-2.6); Phosphorous 4.4 mg/dL (2.3-4.7); Potassium 5.5 mEq/L (3.5-4.5)
[2017-05-02] MEDS: Aspirin 325 MG TABLET PO SCH (08:32)
[2017-05-02] MEDS: Pantoprazole 40 MG VIAL IVP SCH (08:32)
--- NOTE | 2017-05-02 10:46 | Event Note ---
Date of Encounter: 05/02/17 Time of Encounter: 10:30 - Cardiology Event Note Patient now dieuresing. Patient is now net negative 2355ml. Patient states she feels better this morning. Patient tolerating lasix drip currently. Discussed with patient and son, will continue lasix drip. If patient wishes to have further aggressive measures for severe TR and RV failure, cardiology recommends transfer to facility for advanced heart failure.
--- NOTE | 2017-05-02 10:48 | Palliative Progress Note ---
Date of Encounter: 05/02/17 Time of Encounter: 10:40 - Assessment and plan (1) Dyspnea Current Visit: Yes Status: Acute Assessment and plan: Improved slightly. Has been able to tolerate Furosemide drip - urine output improved and weight down 0.6kg. Has not required bipap nearly as much today. Will be transferring to [facility] when bed available Qualifiers: Dyspnea type: unspecified Qualified Code(s): R06.00 - Dyspnea, unspecified (2) Goals of care, counseling/discussion Current Visit: No Status: Acute Assessment and plan: Dr. Beltran in and met with family/pt regarding options for her care at this point. Patient and family desire transfer to higher level of care to be evaluated to see if she is candidate for any type of procedure for her tricuspid valve, or other options for advanced heart failure clinic. Dr. Beltran consulted cardiology during visit for recommendation for transfer. He will begin proceedings for move to [facility]. (3) CHF (congestive heart failure) Current Visit: Yes Status: Acute Qualifiers: Congestive heart failure type: unspecified congestive heart failure type Congestive heart failure chronicity: acute on chronic Qualified Code(s): I50.9 - Heart failure, unspecified (4) Severe tricuspid regurgitation Current Visit: Yes Status: Chronic - Time Spent With Patient Total time spent is greater than 50% in coordination of care (as documented) at patient's floor/unit and/or counseling patient: 25 - 35 minutes - Subjective Interval history: Patient awake and alert, resting on bipap. Son at bedside is sleeping. No other family present at this time. Patient denies any pain or discomfort. Furosemide drip currently infusing, pt had 1L urine output yesterday. Weight has decreased by 0.6 kg. Currently off bipap. - Constitutional Vitals: Abnormal lab results WBC 3.3 K/mcL (4.3-11.1) L 05/02/17 05:48 RBC 3.25 M/mcL (3.82-4.97) L 05/02/17 05:48 Hgb 10.0 g/dL (11.5-15.4) L 05/02/17 05:48 Hct 29.8 % (35.3-44.9) L 05/02/17 05:48 RDW 16.6 % (11.5-14.5) H 05/02/17 05:48 Plt Count 113 K/mcL (140-400) L 05/02/17 05:48 Sodium 132 mEq/L (136-145) L 05/02/17 05:48 Potassium 5.5 mEq/L (3.5-4.5) H 05/02/17 05:48 Chloride 92 mEq/L (98-109) L 05/02/17 05:48 Carbon Dioxide 32 mEq/L (19-29) H 05/02/17 05:48 BUN 60 mg/dL (7-20) H 05/02/17 05:48 Creatinine 1.76 mg/dL (0.57-1.11) H 05/02/17 05:48 Est GFR ( Amer) 33 (> 60) L 05/02/17 05:48 Est GFR (Non-Af Amer) 27 (> 60) L 05/02/17 05:48 BUN/Creatinine Ratio 34 (6-26) H 05/02/17 05:48 Glucose 46 mg/dL (70-99) L 05/02/17 05:48 General appearance: Present: no acute distress - Respiratory Respiratory exam: Present: decreased breath sounds, CTAB Additional comments: fine crackles bilateral lower lobes - Cardiovascular Cardiovascular exam: Present: +S1, +S2 - GI/Abdominal GI/Abdominal exam: Present: normal bowel sounds, soft - Extremities Exam Additional comments: 3+ edema to bilateral upper and lower extremities - Neurological Exam Neurological exam: Present: alert, strengths equal and symetr throughout Additional comments: Oriented to person and place, generalized weakness - Skin Skin exam: Present: dry, pallor, warm Palliative Quality Palliative Quality: Screen for Code Status: Yes, Screen for Goals of Care: Yes, Screen for Pain: Yes, If Pain Regimen Started, Initiate Bowel Regimen: Yes, Screen for Nausea/Vomitting: Yes - Labs CBC & Chem 7: 05/02/17 05:48 05/02/17 05:48 Labs: Laboratory Results - last 24 hr 05/02/17 05/02/17 05:48 05:48 WBC 3.3 L RBC 3.25 L Hgb 10.0 L Hct 29.8 L MCV 91.7 MCH 30.8 MCHC 33.6 RDW 16.6 H Plt Count 113 L MPV 9.9 Immature Gran % 0.3 Seg Neutrophils % 67.0 Lymphocytes % 17.6 Monocytes % 13.3 Eosinophils % 0.9 Basophils % 0.9 Neutrophils # 2.2 Lymphocytes # 0.6 Monocytes # 0.4 Eosinophils # 0.0 Basophils # 0.0 Sodium 132 L Potassium 5.5 H Chloride 92 L Carbon Dioxide 32 H BUN 60 H Creatinine 1.76 H Est GFR ( Amer) 33 L Est GFR (Non-Af Amer) 27 L BUN/Creatinine Ratio 34 H Glucose 46 L Calculated Osmolality 288 Calcium 9.4 Phosphorus 4.4 Magnesium 2.1 Consult Discharge Plan - Plan Referrals: NO,PCP [Primary Care Provider] - (patient is from [facility])
--- NOTE | 2017-05-02 18:28 | Internal Med Progress Note ---
Date of Encounter: 05/02/17 Time of Encounter: 15:00 - Assessment and plan (1) Acute renal failure Current Visit: No Status: Acute Assessment and plan: Avoid nephrotoxins. Monitor GFR. Qualifiers: Acute renal failure type: unspecified Qualified Code(s): N17.9 - Acute kidney failure, unspecified (2) CAD (coronary artery disease) Current Visit: No Status: Chronic Assessment and plan: no acute signs of angina present at this time continue ASA holding lisinopril and Imdur given BP readings Qualifiers: Coronary Disease-Associated Artery/Lesion type: [place] artery [place] vs. transplanted heart: [place] heart Associated angina: without angina Qualified Code(s): I25.10 - Atherosclerotic heart disease of [place] coronary artery without angina pectoris (3) CKD (chronic kidney disease) stage 4, GFR 15-29 ml/min Current Visit: No Status: Chronic Assessment and plan: renal function slightly worsening today will continue to monitor (4) Goals of care, counseling/discussion Current Visit: No Status: Acute Assessment and plan: I have extensive discussion with family and patient regarding goals of care. They wish to continue with DNR CCA, DNI. They would like to pursue a more invasive approach if available and therefore her interested in upper and heart surgery versus possible catheter directed procedure. I have discussed the possibility of transferring her to a tertiary care center and the patient and the family want to pursue this option. Palliative care on board and consultation appreciated (5) Acute respiratory failure with hypoxia Current Visit: No Status: Acute Assessment and plan: Likely secondary to right ventricular failure and moderate to large bilateral pleural effusions.. Oxygen by facemask, BiPAP as tolerated. Continue with diuresis. Would consider therapeutic thoracentesis if diuresis is not successful. (6) Severe tricuspid regurgitation Current Visit: Yes Status: Chronic Assessment and plan: I have discussed the case with cardiology. Patient was deemed not a good surgical candidate however has not been follow-up formally evaluated by CT surgery. Per cardiology there are valved clips used for mitral valve repair that might be used for tricuspid valve however the procedure would be off label. I have explained this to the family and they requested transfer for evaluation a tertiary care facility. (7) Right heart failure with reduced right ventricular function Current Visit: Yes Status: Acute Assessment and plan: Likely secondary to long-standing severe tricuspid regurgitation. Continue treatment with IV Lasix, fluid restriction. Appreciate cardiology input. The family would like to explore advanced heart failure treatment. Cardiology recommended consideration of transfer to a tertiary care facility. - Subjective Interval history: 05/02/2017: The patient says that her shortness of breath has improved. She appeared to be hypoxic to high 80s this morning and was placed on BiPAP. She did not tolerate BiPAP very well and she was transitioned to high flow oxygen mask. Currently at 13 L/m saturating in the low 90s and appearing comfortable. She denies chest pain cough and shortness of breath right now. - Constitutional Vitals: Temp Pulse Resp BP Pulse Ox 97.3 F L 73 23 109/68 91 05/02/17 15:53 05/02/17 15:53 05/02/17 15:53 05/02/17 18:00 05/02/17 15:53 General appearance: Present: A&O X 2, mild distress (respiratory distress), answers questions appropriately - Eye Eye exam: Present: PERRL, conjuntiva pink, sclera anicteric Pupils: Present: PERRL - Respiratory Respiratory exam: Present: decreased breath sounds. Absent: accessory muscle use, rales, rhonchi, wheezes - Cardiovascular Cardiovascular exam: Present: RRR, +S1, +S2, +S3, systolic murmur. Absent: diastolic murmur, rubs - GI/Abdominal GI/Abdominal exam: Present: normal bowel sounds, soft, no peritoneal signs. Absent: distended, tenderness - Extremities Exam Extremities exam: Present: pedal edema (3+ bilateral upper extremity pitting edema), warm, radial pulses palpable and symetrical. Absent: calf tenderness, cyanotic - Neurological Exam Neurological exam: Present: CN II-XII intact, oriented X3, no focal deficits. Absent: pronater drift, facial droop, speech deficit - Skin Skin exam: Present: dry, intact Internal Medicine: Result - Labs CBC & Chem 7: 05/02/17 05:48 05/02/17 05:48 Labs: Short CBC 05/02/17 Range/Units 05:48 WBC 3.3 L (4.3-11.1) K/mcL Hgb 10.0 L (11.5-15.4) g/dL Hct 29.8 L (35.3-44.9) % Plt Count 113 L (140-400) K/mcL Neutrophils # 2.2 (1.6-8.9) K/mcL BMP 05/02/17 05:48 Sodium 132 L Potassium 5.5 H Chloride 92 L Carbon Dioxide 32 H BUN 60 H Creatinine 1.76 H Glucose 46 L Calcium 9.4 Consult Discharge Plan - Plan Referrals: NO,PCP [Primary Care Provider] - ([facility] is from [facility])
[2017-05-03 08:28] LABS: Hematocrit 28.7 % (35.3-44.9); Hemoglobin 9.8 g/dL (11.5-15.4); Immature Platelets 2.7 % (1.1-6.1); Mean Corpuscular HGB Conc 34.1 g/dL (31.6-35.5); Mean Corpuscular Hemoglobin 31.5 pg (28.0-33.3); Mean Corpuscular Volume 92.3 fL (83.0-100.0); Mean Platelet Volume 10.2 fL (9.4-12.4); Red Blood Count 3.11 M/mcL (3.82-4.97); Red Cell Distribution Width 16.5 % (11.5-14.5)
[2017-05-03 08:35] LABS: Calcium 9.2 mg/dL (8.6-10.8); Potassium 5.1 mEq/L (3.5-4.5)
[2017-05-03] MEDS: Pantoprazole 40 MG VIAL IVP SCH (09:27)
[2017-05-03] MEDS: Aspirin 325 MG TABLET PO SCH (09:28)
[2017-05-03] MEDS: Furosemide 240 MG in D5% in Water 96 ML IVC SCH (14:14)
--- NOTE | 2017-05-03 17:44 | Internal Med Progress Note ---
Date of Encounter: 05/03/17 Time of Encounter: 10:00 - Assessment and plan (1) Acute renal failure Current Visit: No Status: Acute Assessment and plan: Avoid nephrotoxins. Monitor GFR. Qualifiers: Acute renal failure type: unspecified Qualified Code(s): N17.9 - Acute kidney failure, unspecified (2) CAD (coronary artery disease) Current Visit: No Status: Chronic Assessment and plan: no acute signs of angina present at this time continue ASA holding lisinopril and Imdur given BP readings Qualifiers: Coronary Disease-Associated Artery/Lesion type: [place] artery [place] vs. transplanted heart: [place] heart Associated angina: without angina Qualified Code(s): I25.10 - Atherosclerotic heart disease of [place] coronary artery without angina pectoris (3) CKD (chronic kidney disease) stage 4, GFR 15-29 ml/min Current Visit: No Status: Chronic Assessment and plan: renal function slightly worsening today will continue to monitor (4) Goals of care, counseling/discussion Current Visit: No Status: Acute Assessment and plan: I have extensive discussion with family and patient regarding goals of care. They wish to continue with DNR CCA, DNI. They would like to pursue a more invasive approach if available and therefore her interested in upper and heart surgery versus possible catheter directed procedure. I have discussed the possibility of transferring her to a tertiary care center and the patient and the family want to pursue this option. Palliative care on board and consultation appreciated (5) Acute respiratory failure with hypoxia Current Visit: No Status: Acute Assessment and plan: Likely secondary to right ventricular failure and moderate to large bilateral pleural effusions.. Oxygen by facemask, BiPAP as tolerated. Continue with diuresis. Would consider therapeutic thoracentesis if diuresis is not successful. (6) Severe tricuspid regurgitation Current Visit: Yes Status: Chronic Assessment and plan: 05/03/2017: We will continue with Lasix drip for diuresis. Family opted for more aggressive treatment and possible intervention and were currently awaiting bed availability at [facility] for transfer. 05/02/2017: I have discussed the case with cardiology. Patient was deemed not a good surgical candidate however has not been follow-up formally evaluated by CT surgery. Per cardiology there are valved clips used for mitral valve repair that might be used for tricuspid valve however the procedure would be off label. I have explained this to the family and they requested transfer for evaluation a tertiary care facility. (7) Right heart failure with reduced right ventricular function Current Visit: Yes Status: Acute Assessment and plan: Likely secondary to long-standing severe tricuspid regurgitation. Continue treatment with IV Lasix, fluid restriction. Appreciate cardiology input. The family would like to explore advanced heart failure treatment. Cardiology recommended consideration of transfer to a tertiary care facility. - Subjective Interval history: 05/03/2017: Patient reports mild improvement in her shortness of breath at rest , no associated chest pain or cough. 05/02/2017: The patient says that her shortness of breath has improved. She appeared to be hypoxic to high 80s this morning and was placed on BiPAP. She did not tolerate BiPAP very well and she was transitioned to high flow oxygen mask. Currently at 13 L/m saturating in the low 90s and appearing comfortable. She denies chest pain cough and shortness of breath right now. - Constitutional Vitals: Temp Pulse Resp BP Pulse Ox 97.4 F L 66 18 87/46 93 05/03/17 16:00 05/03/17 16:00 05/03/17 16:00 05/03/17 17:21 05/03/17 16:00 General appearance: Present: A&O X 2, mild distress (respiratory distress), answers questions appropriately - Respiratory Respiratory exam: Present: decreased breath sounds. Absent: accessory muscle use, rales, rhonchi, wheezes - Cardiovascular Cardiovascular exam: Present: RRR, +S1, +S2, +S3, systolic murmur. Absent: diastolic murmur, gallop, rubs - Extremities Exam Extremities exam: Present: pedal edema, warm, radial pulses palpable and symetrical. Absent: calf tenderness, cyanotic - Neurological Exam Neurological exam: Present: CN II-XII intact, oriented X3, no focal deficits. Absent: pronater drift, facial droop, speech deficit Internal Medicine: Result - Labs CBC & Chem 7: 05/03/17 08:08 05/03/17 08:08 Labs: Short CBC 05/03/17 Range/Units 08:08 WBC 3.1 L (4.3-11.1) K/mcL Hgb 9.8 L (11.5-15.4) g/dL Hct 28.7 L (35.3-44.9) % Plt Count 105 L (140-400) K/mcL BMP 05/03/17 08:08 Sodium 133 L Potassium 5.1 H Chloride 93 L Carbon Dioxide 32 H BUN 62 H Creatinine 1.84 H Glucose 70 Calcium 9.2 Consult Discharge Plan - Plan Referrals: NO,PCP [Primary Care Provider] - (patient is from [facility])
[2017-05-04 06:59] LABS: Potassium 4.8 mEq/L (3.5-4.5)
[2017-05-04 07:08] LABS: Hematocrit 29.9 % (35.3-44.9); Hemoglobin 9.8 g/dL (11.5-15.4); Immature Platelets 3.9 % (1.1-6.1); Mean Corpuscular HGB Conc 32.8 g/dL (31.6-35.5); Mean Corpuscular Hemoglobin 30.6 pg (28.0-33.3); Mean Corpuscular Volume 93.4 fL (83.0-100.0); Mean Platelet Volume 10.4 fL (9.4-12.4); Red Blood Count 3.2 M/mcL (3.82-4.97); Red Cell Distribution Width 16.4 % (11.5-14.5)
[2017-05-04] MEDS: Aspirin 325 MG TABLET PO SCH (10:08)
[2017-05-04 15:26] VITALS: BP 100/56
--- NOTE | 2017-05-04 16:36 | Discharge Summary ---
Date of Encounter: 05/04/17 Time of Encounter: 11:00 - Discharge Diagnosis (1) Acute renal failure Priority: Secondary Status: Acute Qualifiers: Acute renal failure type: unspecified Qualified Code(s): N17.9 - Acute kidney failure, unspecified (2) CAD (coronary artery disease) Priority: Secondary Status: Chronic Qualifiers: Coronary Disease-Associated Artery/Lesion type: red devil artery [place] vs. transplanted heart: red devil heart Associated angina: without angina Qualified Code(s): I25.10 - Atherosclerotic heart disease of red devil coronary artery without angina pectoris (3) CKD (chronic kidney disease) stage 4, GFR 15-29 ml/min Priority: Secondary Status: Chronic (4) Goals of care, counseling/discussion Priority: Secondary Status: Acute (5) Acute respiratory failure with hypoxia Priority: Secondary Status: Acute (6) Severe tricuspid regurgitation Priority: Secondary Status: Chronic (7) Right heart failure with reduced right ventricular function Priority: Secondary Status: Acute (8) CHF (congestive heart failure) Priority: Primary Status: Acute Qualifiers: Congestive heart failure type: systolic Congestive heart failure chronicity : acute on chronic Qualified Code(s): I50.23 - Acute on chronic systolic ( congestive) heart failure - Discharge Medications Home Medications: Bumetanide 1 mg PO DAILY 03/22/17 [History] Levothyroxine Sodium [Levoxyl] 112 mcg PO DAILY 03/22/17 [History] Ceulo-Q-Ulzckgusnbajt [Beano] 300 unit PO TID 04/29/17 [History] Aspirin [Ecotrin] 325 mg PO DAILY 04/29/17 [History] Isosorbide MONOnitrate (24 HR) [Imdur] 60 mg PO DAILY 04/29/17 [History] Lisinopril [Zestril] 5 mg PO DAILY 04/29/17 [History] Sulfamethoxazole/Trimeth DS [Bactrim DS] 1 tab PO BID 04/29/17 [History] Allergies/Adverse Reactions: Allergies codeine Allergy (Verified 04/29/17 13:58) Hallucinating acetaminophen [From Tylenol] Adverse Reaction (Verified 04/29/17 13:58) See Comments unknown lorazepam [From Ativan] Adverse Reaction (Verified 04/29/17 19:20) Difficulty Breathing metoclopramide [From Reglan] Adverse Reaction (Verified 04/29/17 13:58) See Comments unknown midazolam [From Versed] Adverse Reaction (Verified 04/29/17 13:58) See Comments unknown nalbuphine [From Nubain] Adverse Reaction (Verified 04/29/17 13:58) See Comments unknown promethazine [From Phenergan] Adverse Reaction (Verified 04/29/17 13:58) See Comments unknown Date of admission: 05/01/17 17:07 Primary care physician: PCP NO - Patient Status Disposition: Transfer Other Condition: Serious Functional capacity at discharge: bed bound Overall status at discharge: patient is not back to baseline - Discharge Instructions Follow Up With: NO,PCP [Primary Care Provider] - (patient is from [facility]) - Diet and Activity Activity: wear oxygen at all times Diet: low fat, low cholesterol Hospital course: Ms. Medellin is a 86 year old female past medical history significant for chronic kidney disease, chronic right heart failure and severe tricuspid regurgitation who was brought to the hospital for evaluation of weight gain and shortness of breath. She had increasing upper extremity swelling and 30 pound weight gain. She was recently admitted to our hospital and she was discharged to [facility] with hospice. At that facility she was being managed with Bumex by she was not responding and therefore the family decided to remove the patient from hospice and to bring her to the hospital for further evaluation and care. She was admitted to our service and treated with IV Lasix continuous infusion. She had modest urine output with a negative fluid balance of 1.5 L. Her weight decreased by 1.5 kg however she remains edematous and hypoxic. She was evaluated by cardiology. They recommended continuing IV Lasix, no further workup was recommended. They suggested that if she would like to pursue aggressive management she would need to be transferred for advanced heart failure care. We contacted [facility] and she was approved for transfer to their facility. She will be transferred by ambulance today. She is currently hemodynamically stable for transfer. Please refer to H&P, consultation notes and progress notes for further details of this hospitalization. - Time Spent with Patient Total time spent providing and/or coordinating discharge services: Greater than 30 minutes - Constitutional Vitals: Temp Pulse Resp BP Pulse Ox 97.3 F L 65 18 100/56 93 05/04/17 11:05 05/04/17 15:16 05/04/17 15:16 05/04/17 15:16 05/04/17 15:16 General appearance: Present: A&O X 2, mild distress (respiratory distress), answers questions appropriately - Respiratory Respiratory exam: Present: decreased breath sounds. Absent: accessory muscle use, rales, rhonchi, wheezes - Cardiovascular Cardiovascular exam: Present: RRR, +S1, +S2, +S3, systolic murmur (S3 gallop with prominent systolic murmur heard at the apex). Absent: diastolic murmur, gallop, rubs - GI/Abdominal GI/Abdominal exam: Present: normal bowel sounds, soft (3+ pitting edema of the flanks.), no peritoneal signs. Absent: distended, tenderness - Extremities Exam Extremities exam: Present: pedal edema (Bilateral upper and lower extremity edema), warm, radial pulses palpable and symetrical. Absent: calf tenderness, cyanotic
== END 2017-05-04 18:15 | disposition other institution (70) | DRG 291 ==
LOC: 3BNU 13:55 → EMEROO 13:55 → SUATTDRO 15:45 → 3BNU 16:41 → 2ANU 04-30 16:52 → SUATTDRO 05-01 17:07
PROVIDERS: ADMIT Internal Medicine; ATTEND Internal Medicine